=== PATIENT | female | born 1940 | race Caucasian/White ===

== ENCOUNTER → 2017-04-09 | Day surgery (SDC) | payer MEDICARE ==
[2017-04-08 17:54] VITALS: BMI 34.9
[~2017-04-09] MED LIST: Diprivan 20 ML ONE; Lidocaine 1% PF 5 ML VIAL ONE; Lidocaine 2% PF 10 ML AMP (For Epidural Use) ONE; Propofol 200 MG/20 ML VIAL ONE
--- NOTE | 2017-04-09 11:00 | ECHO ---
PROCEDURE NOTE: Date: 04/09/17 PROCEDURE: Transesophageal echocardiogram. INDICATION FOR PROCEDURE: This is a 76-year-old female who is status post Watchman device for chronic atrial fibrillation and increased risk of bleeding with anticoagulation. Transesophageal echocardiogram was performed today to rule out evidence of any flow around or in to the left atrial appendage and to ensure adequate se ating of the Watchman device. DETAILS OF PROCEDURE: The patient was taken to recovery area where she underwent short acting propofol anesthesia. The pro be was easily passed down the distal esophagus and images were obtained. IMPRESSION: 1. There was no evidence of left atrial appendage flow. There was evidence of the Watchman device i n the left atrial appendage. There was no flow around the device or into the left atrial appendage. The left atrium was dilated at 5.4 cm. 2. Severe mitral valve regurgitation. 3. Severe tricuspid valve regurgitation. 4. Normal left ventricular systolic function. Ejection fraction is estimated at 60-65%. The patient tolerated the procedure well without difficulties or complications.
--- NOTE | 2017-04-09 12:17 | SS ---
DATE OF PROCEDURE/DATE OF DISCHARGE: 04/09/2017 ADMITTING DIAGNOSES: This is actually not a true discharge. The patient was not admitted, she was in the outpatient setting, she underwent a transesophageal echocardiogram as the diagnosis was to ev aluate for possible flow around a Watchman device in the left atrial appendage. She has chronic atr ial fibrillation with increased risk of bleeding. She has had recent problems in the past and is hi gh risk for having oral anticoagulation. Other diagnoses include history of hematuria, diverticulit is, hypertension, hyperlipidemia, mitral valve regurgitation, sleep apnea, tricuspid valve regurgita tion, depression with anxiety. DISCHARGE DIAGNOSES: Same. PROCEDURES IN HOSPITAL: Included a transesophageal echocardiogram. HOSPITAL COURSE: This very pleasant 76-year-old female who has had a long history of atrial fibrill ation. She has undergone atrial fibrillation ablation. She continues to have problems with intermi ttent atrial fibrillation. She does appear to be in sinus rhythm, sometimes, but she has had proble ms using oral anticoagulation. She has a CHADS-VASc score of 3. Due to the high risk of bleeding i n this lady she said she had some GI bleeding in the past and Watchman device was deployed and she i s now undergoing today, about 6 weeks later, a transesophageal echocardiogram to rule out evidence o f any flow into the left atrial appendage to possibly increase the possibility of her getting off of her medications. She had been taking Xarelto and diltiazem. This was performed today without diff iculty or complications and she was found to have no flow in the left atrial appendage. The Watchma n device appears to be seated well. DISCHARGE MEDICATIONS: Include Effexor 75 mg daily, Protonix 40 mg a day, potassium supplements tayler ly, Lasix 20 mg a day, Remeron 30 mg at bedtime, metoprolol 25 mg daily, fenofibrate 160 mg daily, C ardizem 60 mg t.i.d. She is on Xarelto 20 mg p.o. daily. Most likely she will stop the Xarelto afte r being visited by the director mobile. Once this was performed, then she will most likely stop the Xarelto and hopefully be able to start a baby aspirin. There were no complications or difficul ties encountered today and she tolerated all the procedures well and she will be discharged home if she remained stable within the next couple of hours and she is awake and alert.
--- NOTE | 2017-04-09 15:01 | EKG ---
Test Reason : PREOP REGGIE Blood Pressure : / mmHG Vent. Rate : 076 BPM Atrial Rate : 220 BPM P-R Int : 000 ms QRS Dur : 086 ms QT Int : 376 ms P-R-T Axes : 000 026 016 degrees QTc Int : 423 ms Atrial fibrillation Possible Inferior infarct , age undetermined Abnormal ECG Confirmed by CORA ALAS ([id number]) on 04/09/2017 3:00:41 PM Referred By: VICK Confirmed By:CORA ALAS
== END ==
LOC: CCL 06:48
PROVIDERS: ATTEND Internal Medicine Cardiovascular Disease
DX: I48.2 Chronic atrial fibrillation (principal); I10 Essential (primary) hypertension; E78.5 Hyperlipidemia, unspecified; G47.30 Sleep apnea, unspecified; I34.0 Nonrheumatic mitral (valve) insufficiency; F32.9 Major depressive disorder, single episode, unspecified; F41.9 Anxiety disorder, unspecified; Z91.048 Other nonmedicinal substance allergy status
CPT/HCPCS: 93005; 93010; 93312; J2001; J2704

== ENCOUNTER 2017-09-19 06:04 | Day surgery (SDC) | payer MEDICARE ==
[2017-09-18 08:40] VITALS: BMI 27.4
[2017-09-19] MEDS ORDERED: PROPOFOL 20 ML ONE (07:07)
[2017-09-19] MEDS ORDERED: Ketamine 50 MG/ML VIAL ONE (07:07)
--- NOTE | 2017-09-19 10:52 | ECHO ---
TRANSESOPHAGEAL ECHOCARDIOGRAM: Date: 09/19/17 This is a 77-year-old female with recurrent chronic atrial fibrillation. She has undergone ablation i n the past. She also has had a Watchman placed. She has severe mitral valve regurgitation. She has b ecome more symptomatic with mitral valve regurgitation. She is being evaluated for a minimally invasi ve mitral valve repair. We were asked by the surgeons to perform a transesophageal echocardiogram for evaluation of the valvular status, the left atrial size, and for any intracardiac thrombi or masses, and also to evaluate the Watchman device. She was taken to the recovery area where she underwent jessie rt-acting propofol. The transesophageal probe was easily passed down the distal esophagus. IMPRESSION: 1. Normal left ventricular systolic function. Ejection fraction is estimated at 55-60%. 2. Left atrial dilatation at 5.4 cm. 3. Severe mitral valve regurgitation. 4. Mild tricuspid valve regurgitation. 5. Trace aortic valve regurgitation. 6. Very small patent foramen ovale with left to right shunt. 7. Watchman device in the left atrial appendage without any evidence of flow around the device. 8. No evidence of intracardiac thrombi or masses. 9. Pliable mitral valve leaflets. There were no difficulties or complications.
--- NOTE | 2017-09-19 13:27 | DIS ---
DATE OF OUTPATIENT PROCEDURE: 09/19/2017 She was seen as an outpatient to undergo an elective transesophageal echocardiogram for evaluation of the mitral valve regurgitation, chamber dimensions, valvular structures, status and also to evaluate the Watchman device which had been placed earlier for her chronic atrial fibrillation. ADMITTING DIAGNOSES: Her other admitting diagnoses include severe mitral valve regurgitation, hypert ension, dyslipidemia. DISCHARGE DIAGNOSES: Severe mitral valve regurgitation, hypertension, dyslipidemia. PROCEDURES IN HOSPITAL: Transesophageal echocardiogram. FOLLOWUP: Her followup will be with me within less than a month in the office to discuss further mary atment for the mitral valve repair to see if any other studies may be indicated prior to proceeding w ith the minimally invasive repair of the mitral valve. She will also be seen in [place] by the CT angy may for the minimally invasive procedure for discussion as to whether or not she is a candidate fo r this. DISCHARGE MEDICATIONS: At this time, will be the same as her admission medications. These include m ultivitamin, Citracal, Fenofibrate 160 mg a day, diltiazem ER 240 mg daily, mirtazapine 30 mg daily, Effexor 75 mg daily, potassium 20 mEq daily, meclizine 25 mg t.i.d. as needed, pantoprazole 40 mg tayler ly, furosemide 40 mg daily, Plavix 75 mg a day, digoxin 0.125 mg every day. PROCEDURES IN HOSPITAL: Transesophageal echocardiogram. HOSPITAL COURSE: This very pleasant 77-year-old female I have followed for many years who has develo ped severe mitral valve regurgitation which has become more symptomatic. She has dyspnea with minima l exertion. She was advised to undergo evaluation for possible mitral valve repair using a minimally invasive procedure. Request was made to perform a transesophageal echocardiogram prior to the proce dure. She was taken to the recovery area where she underwent short acting propofol, the transesophag eal probe was easily passed down the distal esophagus and this showed no evidence of intracardiac thr ombi or masses. She has a Watchman device which is well-seated in the left atrial appendage. Left v entricular systolic function was well preserved. Ejection fraction is 55-60%. She does have severe mitral valve regurgitation and mild tricuspid valve regurgitation, trivial aortic valve regurgitation . She also had a very small patent foramen ovale which most likely is residual from performing the W atchman device, but this appears to be healing up nicely. Ejection fraction was 55-60%. There were no difficulties or complications during her procedure. If she remains stable, she will be discharged home in the next 1-2 hours and further discussion will be directed towards the CV surgeons in [facility] as to any further diagnostic studies and they wish to have undertaken here prior to her evaluation in [place] for a possible mitral valve repair.
[2017-09-19] MEDS ORDERED: PROPOFOL 200 MG/20 ML VIAL ONE (14:06)
[2017-09-19] MEDS ORDERED: PHENYLEPHRINE-NS 100 MCG/ML 10 ML SYRINGE ONE (14:06)
== END 2017-09-19 09:30 | disposition home or self-care (01) ==
LOC: CCL 06:04
PROVIDERS: ATTEND Internal Medicine Cardiovascular Disease
PROC: B246ZZ4 Ultrasonography of Right and Left Heart, Transesophageal (ICD-10-PCS; principal; 2017-09-19)
DX: I34.0 Nonrheumatic mitral (valve) insufficiency (principal); I10 Essential (primary) hypertension; E78.5 Hyperlipidemia, unspecified; I48.2 Chronic atrial fibrillation; I35.1 Nonrheumatic aortic (valve) insufficiency; I36.1 Nonrheumatic tricuspid (valve) insufficiency; Q21.1 Atrial septal defect; G47.30 Sleep apnea, unspecified; F41.8 Other specified anxiety disorders; K21.9 Gastro-esophageal reflux disease without esophagitis; M06.9 Rheumatoid arthritis, unspecified; Z91.048 Other nonmedicinal substance allergy status; Z79.82 Long term (current) use of aspirin; Z79.899 Other long term (current) drug therapy; Z95.818 Presence of other cardiac implants and grafts; Z99.89 Dependence on other enabling machines and devices
CPT/HCPCS: 93312; J2704

== ENCOUNTER 2018-07-08 11:27 | Day surgery (SDC) | payer MEDICARE ==
[2018-07-07 12:09] VITALS: BMI 32.4
[2018-07-08] MEDS ORDERED: PROPOFOL 40 ML ONE (14:21)
[2018-07-08] MEDS ORDERED: PROPOFOL 200 MG/20 ML VIAL ONE (14:39)
--- NOTE | 2018-07-09 07:08 | DIS ---
DATE OF ADMISSION: 07/08/2018 DATE OF DISCHARGE: 07/08/2018 Date of outpatient procedure was 07/08/2018. She was admitted to undergo transesophageal cardiogram with evidence of thrombus on a Watchman device. She also with consideration was given to undergoing a repeat electrocardioversion, since she has converted back to sinus rhythm. OTHER DIAGNOSES: Include 1. Hypertension. 2. Hyperlipidemia. 3. Obstructive sleep apnea, status post maze cryo procedure in December of 2017 and status post mitral valve repair also in 2018. DISCHARGE DIAGNOSES: Include 1. Hypertension. 2. Hyperlipidemia. 3. Obstructive sleep apnea, status post maze cryo procedure in December of 2017 and status post mitral valve repair also in 2018. PROCEDURE IN HOSPITAL: Included transesophageal echocardiogram and electrocardioversion of atrial fibrillation. DISCHARGE MEDICATIONS: Include 1. Metoprolol 25 mg a day. 2. Aspirin 81 mg a day. 3. Venlafaxine 75 mg a day. 4. Pantoprazole 40 mg a day. 5. Eliquis 5 mg b.i.d. 6. Oxybutynin 5 mg at bedtime. 7. MiraLAX as needed. 8. Lasix 40 mg a day. 9. Potassium 10 mEq b.i.d. 10. Losartan 25 mg a day. FOLLOWUP: Her followup will be with me in the next 1 to 2 months in the office. She will continue to routinely follow her chief concierge as per their directions. Procedure in the hospital included a transesophageal echocardiogram and electrical cardioversion of atrial fibrillation. HOSPITAL COURSE: She tolerated the procedures well. She was not noted on the REGGIE to have any evidence of left atrial, left atrial appendage thrombus. There was a Watchman device in the left atrial appendage. There was a trivial leak around the Watchman device, but no evidence of thrombus was noted. She also had mild mitral valve regurgitation and evidence of a previous mitral valve repair. She had moderate to severe tricuspid valve regurgitation. Her left ventricular systolic function was well preserved. With one attempt to 200 joule, she was successfully converted back to a sinus rhythm and sinus bradycardia. There were no other complications or difficulties encountered. She remained stable. She will be discharged home and I will see her back in the office as noted. Job ID: [id number]
--- NOTE | 2018-07-10 15:53 | ECHO ---
CARDIOLOGY PROCEDURE NOTE: Date: 07/08/18 PROCEDURE: Transesophageal echocardiogram. INDICATION FOR PROCEDURE: 78-year-old female with atrial fibrillation, which has been recurrent, with a history of ablation of the atrial fibrillation and PVI in 2014 and multiple cardioversions. She has had mitral valve repair with a maze procedure in 2017. She was found to have clots noted on the Watchman device in December 2017. She also had the Watchman device implanted earlier. She has been on Eliquis for anticoagulatio n. She was seen by the hitch technician, who advised her to undergo a repeat REGGIE to rule out evide nce of thrombus and also to undergo possible repeat cardioversion of her atrial fibrillation since sh e has again returned to atrial fibrillation. PROCEDURE DETAILS: The patient was taken to the cardiac catheter after being on the anticoagulation for three months (El iquis). She underwent short-acting Propofol. The probe was passed down to the distal esophagus. There was no evidence of left atrial or left atrial appendage thrombus. There was a trivial leak around th e Watchman device. I did not visualize any clots on the device. The left atrium was mildly dilated. S he did have mild mitral valve regurgitation and evidence of previous mitral valve repair. Also she shin d moderate to severe tricuspid valve regurgitation. The left ventricular systolic function was about 50-55% ejection fraction. There was no evidence of thrombus. We then proceeded with the electrical ca rdioversion of the atrial fibrillation with one attempt at 200 joules and she was successfully conver zana back to a sinus rhythm with a heart rate in the 50s. Originally, she was very bradycardic, but th en within the next 30-60 seconds the heart rate increased up to the 50s and has remained stable in th e 40s and 50s since she has been cardioverted, and she is maintaining sinus bradycardia with occasion al junctional rhythm, but appears mainly to be a sinus rhythm. Otherwise, there were no complications or difficulties encountered throughout the procedure.
--- NOTE | 2018-07-11 20:34 | EKG ---
Test Reason : PREOP CARDIOVERSION Blood Pressure : / mmHG Vent. Rate : 097 BPM Atrial Rate : 131 BPM P-R Int : 000 ms QRS Dur : 084 ms QT Int : 348 ms P-R-T Axes : 000 053 -18 degrees QTc Int : 441 ms Atrial fibrillation Abnormal QRS-T angle, consider primary T wave abnormality Abnormal ECG When compared with ECG of 09-APR-2017 07:29, Borderline criteria for Inferior infarct are no longer Present Confirmed by Alton HICKMAN ([id number]) on 07/11/2018 8:33:25 PM Referred By: VICK Confirmed By:Alton HICKMAN
--- NOTE | 2018-07-11 20:42 | EKG ---
Test Reason : Blood Pressure : / mmHG Vent. Rate : 051 BPM Atrial Rate : 051 BPM P-R Int : 160 ms QRS Dur : 084 ms QT Int : 424 ms P-R-T Axes : 070 042 014 degrees QTc Int : 390 ms Sinus bradycardia Nonspecific ST abnormality Abnormal ECG When compared with ECG of 08-JUL-2018 15:55, (Unconfirmed) Sinus rhythm has replaced Junctional rhythm Confirmed by Alton HICKMAN ([id number]) on 07/11/2018 8:42:07 PM Referred By: VICK Confirmed By:Alton HICKMAN
== END 2018-07-08 16:58 | disposition home or self-care (01) ==
LOC: CCL 11:27
PROVIDERS: ATTEND Internal Medicine Cardiovascular Disease
PROC: B24BZZ4 Ultrasonography of Heart with Aorta, Transesophageal (ICD-10-PCS; principal; 2018-07-08)
PROC: 5A2204Z Restoration of Cardiac Rhythm, Single (ICD-10-PCS; 2018-07-08)
DX: I48.2 Chronic atrial fibrillation (principal); E78.5 Hyperlipidemia, unspecified; G47.33 Obstructive sleep apnea (adult) (pediatric); M06.9 Rheumatoid arthritis, unspecified; K21.9 Gastro-esophageal reflux disease without esophagitis; I10 Essential (primary) hypertension; Z79.01 Long term (current) use of anticoagulants; Z79.82 Long term (current) use of aspirin; Z79.899 Other long term (current) drug therapy; Z91.048 Other nonmedicinal substance allergy status; Z95.818 Presence of other cardiac implants and grafts; Z98.890 Other specified postprocedural states
CPT/HCPCS: 92960; 93005; 93010; 93312; J2704

== ENCOUNTER 2018-10-17 10:35 | Day surgery (SDC) | payer MEDICARE ==
[2018-10-16 14:25] VITALS: BMI 32.5
[2018-10-17 12:52] LABS: #Eosinphils 0.1 thou/uL (0.0-0.7); #Lymphocytes 1.4 thou/uL (1.20-3.40); #Monocytes 0.4 thou/uL (0.11-0.59); #Neutrophils 4.6 thou/uL (1.40-6.50); %Basophils 0.6 % (0.0-1.0); %Eosinophils 1.3 % (0.0-10.0); %Lymphocytes 21.5 % (21.0-51.0); %Monocytes 6.7 % (0.0-10.0); %Neutrophils 69.9 % (42.0-75.0); Hemoglobin 11.5 g/dL (12.0-16.0); Mean Corpuscular Hemoglobin 28.4 pg (27.0-31.0); Mean Corpuscular Volume 91.7 fL (78.0-98.0); Mean Platelet Volume 7.1 fL (7.4-10.4); Platelet Count 444 thou/uL (130-400); RBC Distribution Width 17.8 % (11.5-14.5); Red Blood Cell (RBC) Count 4.03 mill/uL (4.20-5.40); White Blood Cell (WBC) Count 6.5 thou/uL (4.8-10.8)
[2018-10-17 13:13] LABS: Anion Gap 12 mmol/L (10-20); BUN (Urea Nitrogen) 23 mg/dL (9.8-20.1); Calc. Creatinine Clearance 76 mL/min (70-130); Carbon Dioxide 27 mmol/L (23-31); Chloride 107 mmol/L (98-107); Estimated GFR-MDRD 69; Glucose 86 mg/dL (83-110); Potassium 4.2 mmol/L (3.5-5.1); Sodium 142 mmol/L (136-145)
[2018-10-17] MEDS ORDERED: PROPOFOL 200 MG/20 ML VIAL ONE (16:40)
[2018-10-17] MEDS ORDERED: Lidocaine 1% PF 5 ML VIAL ONE (16:40)
--- NOTE | 2018-10-18 17:44 | ECHO ---
ECHOCARDIOGRAM REPORT: DATE OF EXAM: 10/17/18 INDICATION FOR PROCEDURE: 78-year-old female status post mitral and tricuspid valve annuloplasties. Also had associated Watchma n device placement into the left atrial appendage. She continues to have shortness of breath, fatigue and anemia. During the procedure for the minimally invasive procedure for mitral valve and tricuspid valve repair with annuloplasty and also a Maze procedure, she was noted to have thrombus on the exte rior of the Watchman device which was removed. This was on November 2017. She was advised to undergo a re peat echocardiogram for evaluation to determine whether or not the thrombus had resolved in order pedro t we can consider stopping her Eliquis. In the interim she has also had a small possible TIA. Was see n by the neurologist. This was not felt to be significant and there was no indication that the patien t had actually suffered a CVA. She was taken to the recovery area where she underwent short acting propofol anesthesia and the trans esophageal probe was easily passed down the distal esophagus. IMPRESSION: 1. Evidence of tricuspid and mitral valve repair. 2. Moderate to severe mitral valve regurgitation. 3. Moderate tricuspid valve regurgitation. 4. No evidence of aortic valve regurgitation or stenosis. 5. Left atrial dilatation. 6. Watchman device well seated in the left atrial appendage. No evidence of thrombus formation o n the Watchman device. 7. Normal left ventricular systolic function. Ejection fraction estimated at 60-65%.There were n o difficulties or complications encountered. There were no difficulties or complications encountered.
--- NOTE | 2018-10-18 17:44 | DIS ---
DISCHARGE SUMMARY: The patient was seen in the outpatient facility to undergo a transesophageal echocardiogram. Her diag nosis includes status post Watchman device in left atrial appendage, status post mitral and tricuspid valve annuloplasties. History of hypertension, bradycardia, anemia, history of radiofrequency ablati on for atrial fibrillation. DISCHARGE DIAGNOSIS: Same. PROCEDURES IN THE HOSPITAL: Transesophageal echocardiogram. DISCHARGE MEDICATIONS: Meclizine 25 mg t.i.d. as needed, potassium ER 10 mEq two tablets a day taken with food and also when she takes her Lasix. Effexor 75 mg one tablet q. day, Fenofibrate, aspirin 81 mg a day, Pantoprazole 40 mg q. day, mirtazapine 30 mg q. p.m., Oxybutynin ER 5 mg one q. 24 hours. She had been previously on Eliquis. We will hold this medication for now. Ondanfetrone 4 mg two tablets q. 12 hours as neede d. Tylenol with codeine as needed, multivitamins, Citracal, colchicine 0.6 mg tablets two times a day , Furosemide 20 mg once a day. Losartan 25 mg a day. She had previously been on Metroprolol 25 mg a d ay and we will hold this due to bradycardia. Follow-up will be with me in approximately two weeks in the office in [place]. She will continue her routine follow-up with Dr. Landers. HOSPITAL COURSE: This very pleasant 78-year-old female who has undergone a tricuspid and mitral valve annuloplasty in November of 2017. She also underwent a Maze procedure. Previously, she had undergone ablation for atrial fibrillation. She had had a Watchman device placed also due to the atrial fibrillation. During the ti me of her minimally invasive procedure for the tricuspid and mitral valve repairs, she was noted to h ave thrombus on the Watchman device. This was removed at the time of the procedures and she was advis ed at this time to repeat the evaluation to determine whether or not there was any possible thrombus on the Watchman device since she has remained on Eliquis. We have considered stopping the Eliquis to see whether or not this would improve some of her anemia. In the interim, she has had a possible TIA but no specific stroke was noted and was not felt to be due to embolic phenomenon. At this time, she underwent the procedure, the transesophageal echocardiogram without any complications or difficulties . We did not find any evidence of thrombus on the Watchman device. She continues to have moderate to severe mitral valve regurgitation and moderate tricuspid valve regurgitation. The left ventricular sy stolic function remains stable. Ejection fraction is estimated at 60-65%. At this time, we will stop the beta blockers due to the bradycardia. Heart rates today prior to procedure was in the 40s to 50s. We will stop the beta tisha to see whether or not the heart rate will improve and this may improve also some of her fatigue. Also, we will continue to follow the hemoglobin and hematocrit. We will st op the Eliquis at this time. She will continue the aspirin. I believe she is scheduled to have a colo noscopy in the near future to determine if there is any indication that she may be having any GI bloo d loss. Otherwise she tolerated the procedure well without any difficulties or complications. If she remains stable, she will be discharged to home in the next 1 to 2 hours. I will [facility] in the next couple of weeks in [place].
== END 2018-10-17 16:20 | disposition home or self-care (01) ==
LOC: CCL 10:35
PROVIDERS: ATTEND Internal Medicine Cardiovascular Disease
PROC: B24BZZ4 Ultrasonography of Heart with Aorta, Transesophageal (ICD-10-PCS; principal; 2018-10-17)
DX: I08.1 Rheumatic disorders of both mitral and tricuspid valves (principal); M06.9 Rheumatoid arthritis, unspecified; G47.30 Sleep apnea, unspecified; K21.9 Gastro-esophageal reflux disease without esophagitis; I48.91 Unspecified atrial fibrillation; Z79.01 Long term (current) use of anticoagulants; Z79.82 Long term (current) use of aspirin; Z79.899 Other long term (current) drug therapy; Z91.048 Other nonmedicinal substance allergy status; Z95.818 Presence of other cardiac implants and grafts; Z99.89 Dependence on other enabling machines and devices; Z98.890 Other specified postprocedural states
CPT/HCPCS: 36415; 80048; 85025; 93312; J2001; J2704

== ENCOUNTER 2019-01-23 08:46 | Outpatient (CLI) | payer MEDICARE ==
[2019-01-23 09:27] LABS: Estimated GFR-MDRD - POC Greater than 90
--- NOTE | 2019-01-23 11:32 | CT ---
CTA Angio Chest W WO Con History: Atrial fibrillation Comparison: CT angiogram chest with and without contrast May 2016 Findings: Left anterior descending coronary artery stents. Moderate plaque of the aorta without aneur ysmal dilatation. New from the prior examination is a tricuspid valve annuloplasty ring. Similar appearance mitral valv e annuloplasty ring. The right coronary artery originates in the right coronary cusp and the left coronary artery originates from the left coronary cusp. Left atrial appendage occlusion device completely occludes the left atrial appendage, new from the co mparison examination. No evidence for leak. No significant aortic valve calcifications. The pulmonary trunk measures 34 mm, dilated. The right an d left pulmonary arteries are dilated. No intraluminal filling defect of the pulmonary arteries. Normal single bilateral superior and inferior pulmonary veins. Scattered 2 to 3 mm pulmonary nodules. No airspace consolidation. Mosaic attenuation of the lungs can be seen with chronic pulmonary hypertension. Impression: Vessel mapping as above. The left atrial appendage occlusion device completely occlusive and is without evidence for leak.
[2019-01-23] MEDS ORDERED: Iopamidol 370 76% 100 ML VIAL ONE (13:33)
== END 2019-01-23 08:47 | disposition home or self-care (01) ==
LOC: CT 08:46
DX: I48.91 Unspecified atrial fibrillation (principal); R06.02 Shortness of breath; Z98.890 Other specified postprocedural states
CPT/HCPCS: 71275; 82565; Q9967

== ENCOUNTER 2019-07-14 07:16 | Observation (INO) | payer MEDICARE ==
[2019-07-13 12:58] VITALS: BMI 32.4
[2019-07-14 08:01] LABS: #Eosinphils 0.1 thou/uL (0.0-0.7); #Lymphocytes 1.1 thou/uL (1.20-3.40); #Monocytes 0.5 thou/uL (0.11-0.59); #Neutrophils 3.9 thou/uL (1.40-6.50); %Basophils 0.2 % (0.0-1.0); %Eosinophils 1.8 % (0.0-10.0); %Lymphocytes 19.7 % (21.0-51.0); %Monocytes 9.4 % (0.0-10.0); %Neutrophils 68.9 % (42.0-75.0); Hemoglobin 13.1 g/dL (12.0-16.0); Mean Corpuscular HGB CONC 33.6 g/dL (32.0-36.0); Mean Corpuscular Hemoglobin 33.7 pg (27.0-31.0); Mean Platelet Volume 6.9 fL (7.4-10.4); Platelet Count 337 thou/uL (130-400); RBC Distribution Width 11.3 % (11.5-14.5); Red Blood Cell (RBC) Count 3.88 mill/uL (4.20-5.40); White Blood Cell (WBC) Count 5.7 thou/uL (4.8-10.8)
[2019-07-14 08:14] LABS: Anion Gap 12 mmol/L (10-20); BUN (Urea Nitrogen) 17 mg/dL (9.8-20.1); Calc. Creatinine Clearance 79 mL/min (70-130); Calcium 9.7 mg/dL (7.8-10.44); Carbon Dioxide 28 mmol/L (23-31); Chloride 104 mmol/L (98-107); Estimated GFR-MDRD 73; Glucose 94 mg/dL (83-110); Potassium 4.1 mmol/L (3.5-5.1); Sodium 140 mmol/L (136-145)
[2019-07-14] MEDS ORDERED: PROPOFOL 20 ML ONE (09:26)
[2019-07-14] MEDS ORDERED: Glycopyrrolate 0.2 MG/ML 5 ML SYRINGE ONE ×2 (10:56→11:29)
[2019-07-14] MEDS ORDERED: PROPOFOL 200 MG/20 ML VIAL ONE (11:29)
[2019-07-14] MEDS ORDERED: CEFAZOLIN 1 GM VIAL ONE (15:15)
[2019-07-14] MEDS ORDERED: Midazolam HCl 2 mg/2 ml Vial ONE (15:49)
[2019-07-14] MEDS ORDERED: Gentamicin 80 MG/2 ML VIAL ONE (15:49)
--- NOTE | 2019-07-14 16:36 | OP ---
DATE OF PROCEDURE: 07/14/19 SURGEON: Ivory Bautista M.D. PROCEDURE: Cardioversion INDICATION FOR PROCEDURE: This is a 79-year-old female who has a history of atrial fibrillation. Has undergone ablation in the past. Also has history of a Watchman device placed. She was seen in the clinic approximately two week s ago and was found to be back in atrial fibrillation. Discussed with transportation officer and it was decided that the patient should attempt at another cardioversion of the atrial fibrillation back to s inus rhythm. She was brought to the Recovery area where she underwent short acting propofol and using one attempt at 200 joules, she converted to what appeared to be a severe bradycardia and junctional rhythm. She had significant pauses and developed again junctional rhythm or severe bradycardia. She w as then given 0.2 mg of IV glycopyrrolate and then increased the sinus rhythm up to 60s and 70s and h as remained stable. IMPRESSION: Successful electrical cardioversion of atrial fibrillation back to sinus rhythm without difficulties or any other significant complications.
--- NOTE | 2019-07-14 17:04 | CCL ---
DATE OF PROCEDURE: 07/14/19 INDICATIONS FOR PROCEDURE: 79-year-old female with history of intermittent atrial fibrillation who underwent an electrical cardi oversion for atrial fibrillation this morning. Continued to have episodes of bradycardia with heart r ates in the 30s after the cardioversion which had persisted for more than two hours after the cardiov ersion. 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 She was taken to the [facility] where she underwent the procedure today without difficulties or complic ations. She was implanted with a dual chamber pacemaker from [employer], an [employer] MRI compatible farrah ce. Upper rate was set at 130 and the lower rate was set at 60. There were two screw-in fixed leads p lace. One in the atrium and one in the ventricle. No difficulties or complications were encountered.
[2019-07-14] MEDS ORDERED: Acetaminophen/Codeine 30-300mg Tablet PO PRN ×2 (17:15)
[2019-07-14] MEDS ORDERED: Acetaminophen/Codeine 30-300mg Tablet ONE (19:06)
[2019-07-14] MEDS: Trospium 20 MG TAB PO SCH (20:22)
[2019-07-14] MEDS: hydrALAZINE 10 MG TAB PO SCH (20:22)
[2019-07-14] MEDS ORDERED: Fenofibrate Nanocrystallized 145 MG TAB PO SCH (21:00)
[2019-07-15 08:14] VITALS: BP 134/62; TEMP 98.3
[2019-07-15] MEDS ORDERED: Potassium Chloride 10 MEQ TAB PO SCH (09:00)
[2019-07-15] MEDS ORDERED: Digoxin 0.25 MG TAB PO SCH (09:00)
[2019-07-15] MEDS ORDERED: Venlafaxine HCl XR 75 MG CAP PO SCH (09:00)
[2019-07-15] MEDS ORDERED: Multivitamin W/ Minerals 1 TAB PO SCH (09:00)
[2019-07-15] MEDS ORDERED: Furosemide 40 MG TAB PO SCH (09:00)
[2019-07-15] MEDS ORDERED: Amlodipine 5 MG TAB PO SCH (09:00)
[2019-07-15] MEDS ORDERED: Aspirin 81 mg Enteric Coated Tablet PO SCH (09:00)
[2019-07-15] MEDS ORDERED: Losartan 25 MG TAB PO SCH (09:00)
[2019-07-15] MEDS: hydrALAZINE 10 MG TAB PO SCH (09:16)
[2019-07-15] MEDS: Trospium 20 MG TAB PO SCH (09:17)
--- NOTE | 2019-07-15 15:16 | DIS ---
DATE OF ADMISSION: 07/14/2019 DATE OF DISCHARGE: 07/15/2019 DATE OF PROCEDURE: 07/14/2019. She was seen in the outpatient facility for a planned electrocardioversion of atrial fibrillation. Her diagnosis includes atrial fibrillation, status post ablation of atrial fibrillation in the past, status post maze procedure, status post Watchman device. She also has a history of hyperlipidemia, sleep apnea. She has also had a history of radiofrequency ablation of the greater saphenous vein in 2009. She had a normal ejection fraction and normal cardiac catheterization in 2018. Echocardiogram in September 2018 showed ejection fraction of 60% to 65% with a Watchman, which was well seated in the left atrial appendage. She has also had tricuspid and mitral valve repair due to severe mitral and tricuspid valve regurgitation. DISCHARGE DIAGNOSIS: Atrial fibrillation, sick sinus syndrome She underwent successful electrocardioversion of atrial fibrillation, back to sinus rhythm. DISCHARGE MEDICATIONS: Will include; 1. Effexor 75 mg once a day. 2. Fenofibrate 145 mg once a day. 3. Pantoprazole sodium 40 mg once a day. 4. Oxybutynin chloride ER 10 mg once a day. 5. Centrum Silver vitamin. 6. Potassium 10 mEq two tablets as indicated. 7. Aspirin 81 mg a day. 8. Furosemide 40 mg once a day. 9. Norvasc 5 mg a day. 10. Hydralazine 10 mg four times a day. 11. Losartan 50 mg once a day. She will follow up with the pneumatic tester mechanic in the next 2 to 3 weeks and also will follow up with me in about 1 to 2 months. HOSPITAL COURSE: As noted above. She was admitted to undergo electrocardioversion of atrial fibrillation. This was performed without difficulties or complications except for the bradycardia and then she had heart rates in the 60s to 70s after the procedure. When she was given the glycopyrrolate and then in about 5 or 10 minutes later once this apparently wore off, she did dip down to the 30s at times but then bounced back up to 60s to 70s. We will continue to monitor her over the next 1 to 2 hours. If she remains stable, will be discharged home later today. If she continues to have significant bradycardia, she may need to undergo admission and then probable pacemaker insertion depending on how she does in the next 1 to 2 hours. 07/15/2019 Addendum: She continued to have heart rates in the 30's at times and was advised to undergo permanent pacemaker insertion. She will be admitted overnight after the procedure.There were no other complications or difficulties encountered. I will see her back in the office in 7-10 days. I will resume a betablocker. She was in sinus rhythm on the day of discharge. Job ID: [id number] MTDD
--- NOTE | 2019-07-16 18:01 | DIS ---
DATE OF ADMISSION: 07/14/2019 DATE OF DISCHARGE: 07/15/2019 PRIMARY CARE PHYSICIAN: Dr. Edouard Lawler. PRIMARY MOSHGIACH: Ivory Bautista MD DISCHARGE DIAGNOSES: 1. Atrial fibrillation, status post transesophageal echocardiogram and cardioversion. 2. Bradycardia with status post pacemaker placement. PROCEDURE: 1. Cardioversion for atrial fibrillation. 2. [employer] pacemaker placement on July 14, 2019. HOSPITAL COURSE: Ms. Jon underwent cardioversion of atrial fibrillation on July 14. During the recovery time, the patient's heart rate went down to 30s. The patient underwent pacemaker placement on the same day in the afternoon. The patient doing well. The patient denies any dizziness, lightheadedness. The patient's pacemaker shows A pacing and V sensing sinus rhythm. The patient denied any cardiac complaints. The patient's pacemaker site is cleared open to air. No drainage. Mild erythema and swelling. The patient denied any warmness to touch, pain, or drainage from the site. DISCHARGE MEDICATION: 1. Effexor 75 mg once a day. 2. Fenofibrate 145 mg once a day. 3. Protonix 40 mg once a day. 4. Oxybutynin ER 10 mg once a day. 5. Centrum Silver vitamin. 6. Potassium 10 mEq two tablets as indicate. 7. Aspirin 81 mg once a day. 8. Furosemide 40 mg once a day. 9. Norvasc 5 mg once a day. 10. Hydralazine 10 mg 4 times a day. 11. Losartan 50 mg once a day. 12. Digoxin 250 mcg once a day. DISCHARGE DISPOSITION: Home. ACTIVITY: As tolerated. The patient was instructed not to raise arm especially left arm more than the shoulder level. The patient was instructed to notify to Dr. Bautista' office for any abnormal vital sign and any discharge, swelling or worsening of erythema of the pacemaker site. FOLLOWUP APPOINTMENT: The patient is going to follow up with livestock yard supervisor within the 2-3 weeks. The patient is going to follow up with Dr. Bautista at [place] in 2-3 weeks for the site check and hospital followup, and the patient will continue her routine followup with Dr. Landers. Job ID: [id number]
--- NOTE | 2019-07-20 18:36 | EKG ---
Test Reason : PREOP CARDIOVERSION Blood Pressure : / mmHG Vent. Rate : 080 BPM Atrial Rate : 086 BPM P-R Int : 000 ms QRS Dur : 090 ms QT Int : 354 ms P-R-T Axes : 000 086 -04 degrees QTc Int : 408 ms Atrial fibrillation with a competing junctional pacemaker Abnormal QRS-T angle, consider primary T wave abnormality Abnormal ECG When compared with ECG of 08-JUL-2018 15:59, Atrial fibrillation has replaced Sinus rhythm Vent. rate has increased BY 29 BPM Confirmed by LUZ MARINA LIVINGSTON, DR. Bryson (4) on 07/20/2019 6:36:21 PM Referred By: VICK Confirmed By:DR. Braydon RAZA MD
--- NOTE | 2019-07-20 18:38 | EKG ---
Test Reason : POST CARDIOVERION Blood Pressure : / mmHG Vent. Rate : 069 BPM Atrial Rate : 069 BPM P-R Int : 172 ms QRS Dur : 088 ms QT Int : 394 ms P-R-T Axes : 081 081 028 degrees QTc Int : 422 ms Normal sinus rhythm Normal ECG When compared with ECG of 14-JUL-2019 11:05, (Unconfirmed) Vent. rate has increased BY 33 BPM Nonspecific T wave abnormality no longer evident in Lateral leads QT has lengthened Confirmed by LUZ MARINA LIVINGSTON, SNathalie (4) on 07/20/2019 6:38:09 PM Referred By: VICK Confirmed By:DR. Braydon RAZA MD
--- NOTE | 2019-07-20 18:38 | EKG ---
Test Reason : POST CARDIOVERION Blood Pressure : / mmHG Vent. Rate : 036 BPM Atrial Rate : 036 BPM P-R Int : 160 ms QRS Dur : 088 ms QT Int : 410 ms P-R-T Axes : 075 079 076 degrees QTc Int : 317 ms Marked sinus bradycardia Nonspecific T wave abnormality Abnormal ECG When compared with ECG of 14-JUL-2019 08:07, (Unconfirmed) Sinus rhythm has replaced Atrial fibrillation Vent. rate has decreased BY 44 BPM Nonspecific T wave abnormality now evident in Lateral leads QT has shortened Confirmed by LUZ MARINA LIVINGSTON, . SNathalie (4) on 07/20/2019 6:38:04 PM Referred By: VICK Confirmed By:DR. Braydon RAZA MD
== END 2019-07-15 10:06 | disposition home or self-care (01) ==
LOC: CCL 07:16 → 2SW 19:37
PROVIDERS: ADMIT Internal Medicine Cardiovascular Disease; ATTEND Internal Medicine Cardiovascular Disease
PROC: 5A2204Z Restoration of Cardiac Rhythm, Single (ICD-10-PCS; principal; 2019-07-14)
PROC: 0JH606Z Insertion of Pacemaker, Dual Chamber into Chest Subcutaneous Tissue and Fascia, Open Approach (ICD-10-PCS; 2019-07-14)
PROC: 02H63JZ Insertion of Pacemaker Lead into Right Atrium, Percutaneous Approach (ICD-10-PCS; 2019-07-14)
PROC: 02HK3JZ Insertion of Pacemaker Lead into Right Ventricle, Percutaneous Approach (ICD-10-PCS; 2019-07-14)
DX: I49.5 Sick sinus syndrome (principal); I48.19 Other persistent atrial fibrillation; G47.30 Sleep apnea, unspecified; K21.9 Gastro-esophageal reflux disease without esophagitis; M06.9 Rheumatoid arthritis, unspecified; F41.8 Other specified anxiety disorders; I10 Essential (primary) hypertension; I34.0 Nonrheumatic mitral (valve) insufficiency; E78.2 Mixed hyperlipidemia; M19.90 Unspecified osteoarthritis, unspecified site; I87.2 Venous insufficiency (chronic) (peripheral); Z86.010 Personal history of colon polyps; Z79.82 Long term (current) use of aspirin; Z79.899 Other long term (current) drug therapy; Z91.048 Other nonmedicinal substance allergy status; Z99.89 Dependence on other enabling machines and devices
CPT/HCPCS: 33208; 80048; 85025; 92960; 93005 ×2; C1785; C1898 ×2; G0378 ×2; 36415; 93010; 99152; 99153; J0690; J1580; J2250; J2704

== ENCOUNTER 2020-01-13 13:58 | Outpatient (CLI) | payer MEDICARE, OTHER ==
[2020-01-13 21:22] LABS: #Eosinphils 0.2 10x3/uL (0.0-0.5); #Monocytes 0.6 10x3/uL (0.0-1.1); #Neutrophils 4.1 10x3/uL (1.5-8.4); %Basophils 0.3 % (0.0-2.0); %Eosinophils 2.4 % (0.0-6.0); %Lymphocytes 25.6 % (18.0-47.0); %Monocytes 9.4 % (0.0-10.0); Hemoglobin 12.3 g/dL (12.0-15.6); Mean Corpuscular HGB CONC 32.4 G/DL (32.0-36.0); Mean Corpuscular Hemoglobin 31.9 PG (27.0-33.0); Mean Corpuscular Volume 98.4 fl (80.0-100.0); RBC Distribution Width 12.7 % (11.5-14.5); Red Blood Cell (RBC) Count 3.86 10x6/uL (3.90-5.20); White Blood Cell (WBC) Count 6.7 10x3/uL (4.5-11.0)
[2020-01-13 21:23] LABS: Platelet Count 413 10x3/uL (130-400)
[2020-01-13 21:34] LABS: Anion Gap 19 mmol/L (10-20); BUN (Urea Nitrogen) 34 mg/dL (9.8-20.1); Calc. Creatinine Clearance 0 mL/min (70-130); Calcium 9.5 mg/dL (7.8-10.44); Carbon Dioxide 22 mmol/L (23-31); Chloride 104 mmol/L (98-107); Estimated GFR-MDRD 47; Glucose 82 mg/dL (83-110); Potassium 4.8 mmol/L (3.5-5.1); Sodium 140 mmol/L (136-145)
[2020-01-14 10:36] LABS: #Lymphocytes 1.7 10x3/uL (0.7-4.9)
[2020-01-14 10:38] LABS: Manual Diff?? NO
[2020-01-14 14:53] LABS: SARS-CoV-2 MS2 Positive; SARS-CoV-2 N Gene Negative; SARS-CoV-2 S Gene Negative; SARS-CoV-2 orf1ab Negative
== END 2020-01-13 13:59 | disposition home or self-care (01) ==
LOC: LABBT 13:58
PROVIDERS: ATTEND Internal Medicine Cardiovascular Disease
DX: Z01.818 Encounter for other preprocedural examination (principal); Z11.59 Encounter for screening for other viral diseases; I48.19 Other persistent atrial fibrillation
CPT/HCPCS: 80048; 85025; U0003; 87635; 93005; 93010

== ENCOUNTER 2020-01-18 05:51 | Day surgery (SDC) | payer MEDICARE ==
[2020-01-15 10:37] VITALS: BMI 32.5
[2020-01-18] MEDS ORDERED: PROPOFOL 20 ML ONE (06:53)
--- NOTE | 2020-01-18 12:53 | DIS ---
DATE OF ADMISSION: 01/18/2020 DATE OF DISCHARGE: 01/18/2020 She was seen as an outpatient where she underwent electrocardioversion. DIAGNOSES: Atrial fibrillation, status post Watchman device, status post pacemaker insertion. DISCHARGE DIAGNOSES: Atrial fibrillation, status post Watchman device, status post pacemaker insertion. PROCEDURE: She was converted from atrial fibrillation back to normal sinus rhythm. DISCHARGE MEDICATIONS: 1. Aspirin 81 mg a day. 2. Multaq 400 mg b.i.d. 3. TriCor 145 mg q.p.m. 4. Lasix 40 mg a day. 5. Hydralazine 10 mg q.i.d. 6. Losartan 50 mg daily. 7. Metoprolol 25 mg b.i.d. 8. Multivitamins. 9. Protonix 40 mg a day. 10. KCl 10 mEq a day. 11. VESIcare one tablet 10 mg q.p.m. 12. Venlafaxine hydrochloride ER 75 mg q.a.m. HOSPITAL COURSE: Her followup will be with me in the next couple of weeks in the office. We will call her or we can also perform a transtelephonic check of the pacemaker if she remains in sinus rhythm. There were no complications or difficulties encountered. She was brought into the hospital as an outpatient and underwent short acting propofol and then one attempt at 200 joules, she was successfully converted back from her atrial fibrillation back to sinus rhythm. She has atrial pacing and ventricular pacing at a rate of 60 to 80 beats per minute but remained stable. Should she convert back to atrial fibrillation, we will just continue to monitor the heart rate and control the heart rate and continue aspirin for anticoagulation. She has had a Watchman device and does not need to have oral anticoagulation otherwise. Job ID: [id number]
--- NOTE | 2020-01-18 15:27 | CCLSPC ---
INDICATION FOR PROCEDURE: A 79-year-old female who has undergone pacemaker insertion, has a history of Watchman device, history of atrial fibrillation and was advised to undergo a cardioversion. She had been treated with Multaq. She had been on anticoagulation. She was taken to the recovery area where she underwent short acting propofol, using one attempt at 200 joules, she was successfully converted back to normal sinus rhythm. There were no complications or difficulties encountered. Job ID: [id number]
== END 2020-01-18 08:05 | disposition home or self-care (01) ==
LOC: CCL 05:51
PROVIDERS: ATTEND Internal Medicine Cardiovascular Disease
PROC: 5A2204Z Restoration of Cardiac Rhythm, Single (ICD-10-PCS; principal; 2020-01-18)
DX: I48.19 Other persistent atrial fibrillation (principal); I10 Essential (primary) hypertension; E78.2 Mixed hyperlipidemia; I87.2 Venous insufficiency (chronic) (peripheral); M19.90 Unspecified osteoarthritis, unspecified site; D50.8 Other iron deficiency anemias; G47.33 Obstructive sleep apnea (adult) (pediatric); K21.9 Gastro-esophageal reflux disease without esophagitis; M06.9 Rheumatoid arthritis, unspecified; F41.8 Other specified anxiety disorders; Z79.82 Long term (current) use of aspirin; Z79.899 Other long term (current) drug therapy; Z91.048 Other nonmedicinal substance allergy status; Z95.0 Presence of cardiac pacemaker; Z95.2 Presence of prosthetic heart valve; Z95.818 Presence of other cardiac implants and grafts
CPT/HCPCS: 92960; 93005; 93010; J2704

== ENCOUNTER 2021-12-28 16:53 | Inpatient (IN) | payer MEDICARE ==
[~2021-12-28 16:53] MED LIST changes: -Diprivan 20 ML ONE; +ISOVUE-370 76%-LOCM 1 ML ONE; -Lidocaine 1% PF 5 ML VIAL ONE; -Lidocaine 2% PF 10 ML AMP (For Epidural Use) ONE; -Propofol 200 MG/20 ML VIAL ONE
[2021-12-28 18:33] LABS: #Eosinphils 0.1 thou/uL (0.0-0.7); #Lymphocytes 1.4 thou/uL (1.20-3.40); #Monocytes 0.8 thou/uL (0.11-0.59); #Neutrophils 8.6 thou/uL (1.40-6.50); %Basophils 0.2 % (0.0-1.0); %Lymphocytes 12.7 % (21.0-51.0); %Monocytes 7.1 % (0.0-10.0); %Neutrophils 79.1 % (42.0-75.0); Hemoglobin 11.9 g/dL (12.0-16.0); Mean Corpuscular HGB CONC 30.8 g/dL (32.0-36.0); Mean Platelet Volume 7.2 fL (7.4-10.4); Platelet Count 324 thou/uL (130-400); RBC Distribution Width 13.9 % (11.5-14.5); White Blood Cell (WBC) Count 10.9 thou/uL (4.8-10.8)
[2021-12-28 19:14] LABS: Bacteria/HPF None Seen HPF (None Seen); Bilirubin Negative (Negative); Blood, Urine Negative (Negative); Clarity Clear (Clear); Glucose, Urine (Dipstick) Normal (Negative); Ketone, Urine Negative (Negative); Leukocyte 75 Leu/uL (Negative); Nitrite Negative (Negative); Protein, Urine (Dipstick) Negative (Neg-Trace); RBC/HPF 0-3 HPF (0-3); Specific Gravity, Urine 1.017 (1.002-1.036); Squamous Epithelial None Seen HPF (0-3); Urobilinogen 6 mg/dL (Less than 2); pH, Urine 6.5 (5.0-9.0)
[2021-12-28 19:17] LABS: MDiff Complete? YES; Macrocytosis SLIGHT = 6-15 cells (100X) (0-5/hpf); Platelet Morphology Comment Appears Adequate; Polychromasia SLIGHT = 2-3 cells (100X) (0-2/hpf)
[2021-12-28 20:31] LABS: ALT (SGPT) 48 U/L (8-55); AST (SGOT) 119 U/L (5-34); Albumin 2.9 g/dL (3.4-4.8); Alkaline Phosphatase 205 U/L (40-110); Anion Gap 17 mmol/L (10-20); BUN (Urea Nitrogen) 25 mg/dL (9.8-20.1); Bilirubin, Total 1.8 mg/dL (0.2-1.2); Calc. Creatinine Clearance 0 mL/min (70-130); Calcium 8.9 mg/dL (7.8-10.44); Carbon Dioxide 25 mmol/L (23-31); Chloride 102 mmol/L (98-107); Estimated GFR 56; Globulin 3.7 g/dL (2.4-3.5); Glucose 104 mg/dL (83-110); Lipase 61 U/L (8-78); Potassium 4.8 mmol/L (3.5-5.1); Protein, Total 6.6 g/dL (5.8-8.1); Sodium 139 mmol/L (136-145)
[2021-12-28] MEDS ORDERED: Furosemide 40 MG/4 ML VIAL ONE (21:10)
[2021-12-28 21:47] LABS: SARS-CoV-2 NAA Rapid Test Not Detected (NotDetected)
[2021-12-28] MEDS ORDERED: Ondansetron ODT 4 MG TAB PO PRN (21:51)
[2021-12-28] MEDS ORDERED: Ondansetron PF 4 MG/2 ML Vial IVP PRN (21:51)
[2021-12-28] MEDS ORDERED: Acetaminophen 650 MG Suppository PR PRN (21:51)
[2021-12-29] MEDS ORDERED: Furosemide 40 MG/4 ML VIAL SLOW IVP SCH (01:30)
[2021-12-29] MEDS: cefTRIAXone\\ROCEPHIN 1 GM in Sodium Chloride 0.9% 100 ML IVPB SCH (02:33)
[2021-12-29 04:45] LABS: #Basophils 0.1 thou/uL (0.0-0.2); #Eosinphils 0.2 thou/uL (0.0-0.7); #Lymphocytes 1.3 thou/uL (1.20-3.40); #Monocytes 0.7 thou/uL (0.11-0.59); #Neutrophils 6.7 thou/uL (1.40-6.50); %Basophils 0.7 % (0.0-1.0); %Eosinophils 1.7 % (0.0-10.0); %Lymphocytes 14.1 % (21.0-51.0); %Monocytes 8.3 % (0.0-10.0); %Neutrophils 75.3 % (42.0-75.0); Hemoglobin 10.7 g/dL (12.0-16.0); Mean Corpuscular HGB CONC 31.6 g/dL (32.0-36.0); Mean Corpuscular Hemoglobin 34.9 pg (27.0-31.0); Mean Platelet Volume 6.9 fL (7.4-10.4); Platelet Count 279 thou/uL (130-400); Red Blood Cell (RBC) Count 3.06 mill/uL (4.20-5.40)
[2021-12-29 05:56] LABS: Anion Gap 12 mmol/L (10-20); BUN (Urea Nitrogen) 23 mg/dL (9.8-20.1); Calc. Creatinine Clearance 69 mL/min (70-130); Calcium 8.8 mg/dL (7.8-10.44); Carbon Dioxide 31 mmol/L (23-31); Chloride 102 mmol/L (98-107); Estimated GFR 62; Glucose 84 mg/dL (83-110); Magnesium 1.9 mg/dL (1.6-2.6); Potassium 3.9 mmol/L (3.5-5.1); Sodium 141 mmol/L (136-145)
[2021-12-29] MEDS: Furosemide 40 MG/4 ML VIAL SLOW IVP SCH ×2 (05:59→15:58)
[2021-12-29] MEDS: Enoxaparin Sodium 40 MG/0.4 ML SYRINGE SC SCH (08:22)
[2021-12-29] MEDS ORDERED: Spironolactone 25 MG TAB PO SCH (10:15)
[2021-12-29 11:28] LABS: INR-International Normal Ratio 1.3; Prothrombin Time 16.4 sec (12.0-14.7)
[2021-12-29 15:45] LABS: Fluid, Protein 1.7 g/dL (Not Available)
[2021-12-29 15:49] LABS: RBC Count-Automated (BF) 575 /cu.mm; WBC/Nucleated-Auto (BF) 271 /cu.mm
[2021-12-29 15:51] LABS: Fluid, pH - Pleural Fld Greater than 7.50 (7.60 - 7.66)
[2021-12-29] MEDS: Spironolactone 25 MG TAB PO SCH (15:58)
[2021-12-29 16:30] LABS: Body Fluid Source Peritoneal Fluid
[2021-12-29 16:31] LABS: BF Color Yellow; Clarity Hazy (Clear); Tube # EDTA
[2021-12-29 16:35] LABS: BF Segmented Neutrophils 16 %; Cell Count Non Hematic 39 %; Eosinophils 1 %; Lymphocytes 44 %
[2021-12-29] MEDS ORDERED: Senokot 8.6 MG TAB PO PRN (18:33)
[2021-12-29] MEDS ORDERED: Calcium Carbonate 500 MG ChewTAB PO PRN ×2 (19:24→21:00)
[2021-12-29] MEDS: Albumin 25% 25 GM/100 ML BOT IVPB SCH (21:00)
[2021-12-29] MEDS: Calcium Carbonate 600 MG + Vit D TAB PO SCH (21:01)
[2021-12-29] MEDS: Docusate 100 MG CAP PO SCH (21:01)
[2021-12-29] MEDS: Melatonin 3 MG TAB PO SCH (21:01)
[2021-12-29] MEDS: Potassium Chloride 10 MEQ TAB PO SCH (21:01)
[2021-12-30] MEDS: Albumin 25% 25 GM/100 ML BOT IVPB SCH ×4 (00:18→21:17)
[2021-12-30] MEDS ORDERED: traZODone HCl 50 MG TAB PO PRN (01:51)
[2021-12-30] MEDS: cefTRIAXone\\ROCEPHIN 1 GM in Sodium Chloride 0.9% 100 ML IVPB SCH (02:42)
[2021-12-30 05:57] LABS: ALT (SGPT) 32 U/L (8-55); AST (SGOT) 84 U/L (5-34); Albumin 2.9 g/dL (3.4-4.8); Alkaline Phosphatase 161 U/L (40-110); Anion Gap 13 mmol/L (10-20); BUN (Urea Nitrogen) 24 mg/dL (9.8-20.1); Bilirubin, Total 1.9 mg/dL (0.2-1.2); CRP (Inflammatory) 7.76 mg/dL (= or < 0.5); Calc. Creatinine Clearance 71 mL/min (70-130); Calcium 8.7 mg/dL (7.8-10.44); Carbon Dioxide 28 mmol/L (23-31); Chloride 101 mmol/L (98-107); Estimated GFR 64; Glucose 95 mg/dL (83-110); Iron 62 ug/dL (50-170); Iron Binding Capacity, Total 189 mcg/dL (265-497); Protein, Total 5.9 g/dL (5.8-8.1); Sodium 138 mmol/L (136-145)
[2021-12-30] MEDS: Furosemide 40 MG/4 ML VIAL SLOW IVP SCH ×2 (05:57→15:16)
[2021-12-30 06:14] LABS: Alpha-Fetoprotein,Tumor Marker 3.9 ng/mL (0.89-8.78)
[2021-12-30 06:14] LABS: Ferritin 95.64 ng/mL (10-291)
[2021-12-30 06:28] LABS: HBCM Index 0.19 S/CO (0-0.79); HBSAg Index 0.22 S/CO (0-0.99); Hep A IgM AB Non-Reactive (NonReactive); Hep A IgM S/CO 0.25 S/CO (0-0.79); Hep B Surf Ag Non-Reactive S/CO (NonReactive); Hep C IgG Ab Non-Reactive (NonReactive); Hepatitis B Core IgM Abs Non-Reactive (NonReactive)
[2021-12-30 07:12] LABS: Cancer Antigen - CA 125 1337.2 U/mL (Less than 35)
[2021-12-30 07:16] LABS: #Eosinphils 0.1 thou/uL (0.0-0.7); #Lymphocytes 1.1 thou/uL (1.20-3.40); #Monocytes 0.8 thou/uL (0.11-0.59); #Neutrophils 7.1 thou/uL (1.40-6.50); %Basophils 0.3 % (0.0-1.0); %Lymphocytes 11.6 % (21.0-51.0); %Monocytes 8.4 % (0.0-10.0); %Neutrophils 78.7 % (42.0-75.0); Hemoglobin 10.7 g/dL (12.0-16.0); Mean Corpuscular HGB CONC 32.5 g/dL (32.0-36.0); Mean Corpuscular Hemoglobin 35.6 pg (27.0-31.0); Mean Platelet Volume 6.7 fL (7.4-10.4); Platelet Count 284 thou/uL (130-400); RBC Distribution Width 13.9 % (11.5-14.5); White Blood Cell (WBC) Count 9.1 thou/uL (4.8-10.8)
[2021-12-30] MEDS: Gabapentin 100 MG CAP PO SCH (09:01)
[2021-12-30] MEDS: Polyethylene Glycol 3350 17 GM Packet PO SCH (09:01)
[2021-12-30] MEDS: Docusate 100 MG CAP PO SCH ×2 (09:01→21:16)
[2021-12-30] MEDS: Venlafaxine HCl XR 75 MG CAP PO SCH (09:01)
[2021-12-30] MEDS: Potassium Chloride 10 MEQ TAB PO SCH ×2 (09:02→21:16)
[2021-12-30] MEDS: Aspirin 81 mg Enteric Coated Tablet PO SCH (09:02)
[2021-12-30] MEDS: Cholecalciferol 1,000 UNITS (25 MCG) TAB PO SCH (09:02)
[2021-12-30] MEDS: Enoxaparin Sodium 40 MG/0.4 ML SYRINGE SC SCH (09:02)
[2021-12-30] MEDS: Spironolactone 25 MG TAB PO SCH ×2 (09:02→17:17)
[2021-12-30] MEDS: Calcium Carbonate 600 MG + Vit D TAB PO SCH ×2 (09:02→21:16)
[2021-12-30] MEDS ORDERED: Albumin 25% 25 GM/100 ML BOT IVPB SCH ×2 (12:45→18:45)
[2021-12-30] MEDS: Melatonin 3 MG TAB PO SCH (21:16)
[2021-12-31] MEDS: cefTRIAXone\\ROCEPHIN 1 GM in Sodium Chloride 0.9% 100 ML IVPB SCH (01:41)
[2021-12-31] MEDS: Albumin 25% 25 GM/100 ML BOT IVPB SCH ×3 (03:20→15:48)
[2021-12-31] MEDS: Furosemide 40 MG/4 ML VIAL SLOW IVP SCH ×2 (05:39→13:32)
[2021-12-31 05:44] LABS: ALT (SGPT) 26 U/L (8-55); AST (SGOT) 67 U/L (5-34); Albumin 3.6 g/dL (3.4-4.8); Alkaline Phosphatase 135 U/L (40-110); Anion Gap 15 mmol/L (10-20); BUN (Urea Nitrogen) 21 mg/dL (9.8-20.1); Bilirubin, Total 2.4 mg/dL (0.2-1.2); Calc. Creatinine Clearance 82 mL/min (70-130); Calcium 8.9 mg/dL (7.8-10.44); Carbon Dioxide 27 mmol/L (23-31); Chloride 102 mmol/L (98-107); Estimated GFR 77; Globulin 2.6 g/dL (2.4-3.5); Glucose 88 mg/dL (83-110); Potassium 3.8 mmol/L (3.5-5.1); Protein, Total 6.2 g/dL (5.8-8.1); Sodium 140 mmol/L (136-145)
[2021-12-31] MEDS: Enoxaparin Sodium 40 MG/0.4 ML SYRINGE SC SCH (08:56)
[2021-12-31] MEDS: Potassium Chloride 10 MEQ TAB PO SCH ×2 (08:56→20:23)
[2021-12-31] MEDS: Polyethylene Glycol 3350 17 GM Packet PO SCH (08:56)
[2021-12-31] MEDS: Spironolactone 25 MG TAB PO SCH ×2 (08:56→17:17)
[2021-12-31] MEDS: Docusate 100 MG CAP PO SCH ×2 (08:56→20:23)
[2021-12-31] MEDS: Gabapentin 100 MG CAP PO SCH (08:56)
[2021-12-31] MEDS: Aspirin 81 mg Enteric Coated Tablet PO SCH (08:56)
[2021-12-31] MEDS: Calcium Carbonate 600 MG + Vit D TAB PO SCH ×2 (08:56→20:23)
[2021-12-31] MEDS: Venlafaxine HCl XR 75 MG CAP PO SCH (08:56)
[2021-12-31] MEDS: Cholecalciferol 1,000 UNITS (25 MCG) TAB PO SCH (08:57)
[2021-12-31] MEDS ORDERED: HYDROcodone/Acetaminophen 5/325 mg Tablet PO PRN (13:07)
[2021-12-31] MEDS: Melatonin 3 MG TAB PO SCH (20:22)
[2021-12-31] MEDS: Acetaminophen 325 MG TAB PO PRN (20:34)
[2022-01-01] MEDS: cefTRIAXone\\ROCEPHIN 1 GM in Sodium Chloride 0.9% 100 ML IVPB SCH (01:35)
[2022-01-01 05:39] LABS: ALT (SGPT) 22 U/L (8-55); AST (SGOT) 61 U/L (5-34); Albumin 3.4 g/dL (3.4-4.8); Alkaline Phosphatase 133 U/L (40-110); Anion Gap 13 mmol/L (10-20); BUN (Urea Nitrogen) 26 mg/dL (9.8-20.1); Bilirubin, Total 2.4 mg/dL (0.2-1.2); Calc. Creatinine Clearance 64 mL/min (70-130); Calcium 8.8 mg/dL (7.8-10.44); Carbon Dioxide 30 mmol/L (23-31); Chloride 101 mmol/L (98-107); Estimated GFR 58; Globulin 2.3 g/dL (2.4-3.5); Glucose 93 mg/dL (83-110); Protein, Total 5.7 g/dL (5.8-8.1); Sodium 140 mmol/L (136-145)
[2022-01-01] MEDS: Furosemide 40 MG/4 ML VIAL SLOW IVP SCH ×2 (06:10→15:47)
[2022-01-01] MEDS: Enoxaparin Sodium 40 MG/0.4 ML SYRINGE SC SCH (08:46)
[2022-01-01] MEDS: Polyethylene Glycol 3350 17 GM Packet PO SCH (08:46)
[2022-01-01] MEDS: Venlafaxine HCl XR 75 MG CAP PO SCH (08:48)
[2022-01-01] MEDS: Aspirin 81 mg Enteric Coated Tablet PO SCH (08:48)
[2022-01-01] MEDS: Docusate 100 MG CAP PO SCH ×2 (08:48→21:28)
[2022-01-01] MEDS: Calcium Carbonate 600 MG + Vit D TAB PO SCH ×2 (08:49→21:28)
[2022-01-01] MEDS: Gabapentin 100 MG CAP PO SCH (08:49)
[2022-01-01] MEDS: Spironolactone 25 MG TAB PO SCH ×2 (08:49→15:47)
[2022-01-01] MEDS: Potassium Chloride 10 MEQ TAB PO SCH ×2 (08:50→21:28)
[2022-01-01] MEDS: Cholecalciferol 1,000 UNITS (25 MCG) TAB PO SCH (08:50)
[2022-01-01 10:57] LABS: ANA Symphony (Qualitative) Negative (Negative); ANA Symphony (Quantitative) 0.5 Ratio (< 0.7 Negative); EliA Vaculitis New Method **** NEW METHOD ****; Mitochondrial Ab 1.4 U/mL (<4 Negative); dsDNA IgG Antibody 1.2 IU/mL (<10 Negative)
[2022-01-01] MEDS: Melatonin 3 MG TAB PO SCH (21:27)
[2022-01-02] MEDS: cefTRIAXone\\ROCEPHIN 1 GM in Sodium Chloride 0.9% 100 ML IVPB SCH (01:43)
[2022-01-02 05:10] LABS: #Eosinphils 0.1 thou/uL (0.0-0.7); #Monocytes 0.8 thou/uL (0.11-0.59); #Neutrophils 7.2 thou/uL (1.40-6.50); %Eosinophils 1.4 % (0.0-10.0); %Lymphocytes 10.9 % (21.0-51.0); %Monocytes 8.5 % (0.0-10.0); %Neutrophils 79.2 % (42.0-75.0); Hemoglobin 10.2 g/dL (12.0-16.0); Mean Corpuscular HGB CONC 32.1 g/dL (32.0-36.0); Mean Corpuscular Hemoglobin 35.3 pg (27.0-31.0); Mean Platelet Volume 7.2 fL (7.4-10.4); Platelet Count 262 thou/uL (130-400); RBC Distribution Width 13.8 % (11.5-14.5); White Blood Cell (WBC) Count 9.1 thou/uL (4.8-10.8)
[2022-01-02 05:35] LABS: Anion Gap 12 mmol/L (10-20); BUN (Urea Nitrogen) 29 mg/dL (9.8-20.1); Calc. Creatinine Clearance 65 mL/min (70-130); Carbon Dioxide 31 mmol/L (23-31); Chloride 100 mmol/L (98-107); Potassium 4.4 mmol/L (3.5-5.1); Sodium 139 mmol/L (136-145)
[2022-01-02 05:36] LABS: ALT (SGPT) 27 U/L (8-55); AST (SGOT) 69 U/L (5-34); Albumin 3.3 g/dL (3.4-4.8); Alkaline Phosphatase 147 U/L (40-110); Bilirubin, Total 2.4 mg/dL (0.2-1.2); Calcium 8.8 mg/dL (7.8-10.44); Estimated GFR 58; Globulin 2.4 g/dL (2.4-3.5); Glucose 109 mg/dL (83-110); Protein, Total 5.7 g/dL (5.8-8.1)
[2022-01-02] MEDS: Enoxaparin Sodium 40 MG/0.4 ML SYRINGE SC SCH (09:20)
[2022-01-02] MEDS: Polyethylene Glycol 3350 17 GM Packet PO SCH (09:21)
[2022-01-02] MEDS: Gabapentin 100 MG CAP PO SCH (09:22)
[2022-01-02] MEDS: Docusate 100 MG CAP PO SCH ×2 (09:22→21:51)
[2022-01-02] MEDS: Aspirin 81 mg Enteric Coated Tablet PO SCH (09:23)
[2022-01-02] MEDS: Potassium Chloride 10 MEQ TAB PO SCH (09:23)
[2022-01-02] MEDS: Cholecalciferol 1,000 UNITS (25 MCG) TAB PO SCH (09:23)
[2022-01-02] MEDS: Venlafaxine HCl XR 75 MG CAP PO SCH (09:23)
[2022-01-02] MEDS: Calcium Carbonate 600 MG + Vit D TAB PO SCH ×2 (09:23→21:51)
[2022-01-02] MEDS ORDERED: CEFAZOLIN 2 GM in Sodium Chloride 0.9% 100 ML IVPB SCH (12:00)
[2022-01-02] MEDS: methylPREDNISolone Sod Succ 40 MG VIAL IVP SCH ×3 (14:27→22:00)
[2022-01-02] MEDS: Melatonin 3 MG TAB PO SCH (21:51)
[2022-01-02] MEDS: Furosemide 40 MG/4 ML VIAL SLOW IVP SCH (21:54)
[2022-01-03] MEDS: cefTRIAXone\\ROCEPHIN 1 GM in Sodium Chloride 0.9% 100 ML IVPB SCH (02:04)
[2022-01-03 05:18] LABS: #Lymphocytes 0.5 thou/uL (1.20-3.40); #Monocytes 0.2 thou/uL (0.11-0.59); #Neutrophils 7.3 thou/uL (1.40-6.50); %Basophils 0.3 % (0.0-1.0); %Eosinophils 0.2 % (0.0-10.0); %Lymphocytes 5.6 % (21.0-51.0); %Monocytes 2.1 % (0.0-10.0); %Neutrophils 91.9 % (42.0-75.0); Hemoglobin 10.2 g/dL (12.0-16.0); Mean Corpuscular HGB CONC 31.6 g/dL (32.0-36.0); Mean Corpuscular Hemoglobin 34.8 pg (27.0-31.0); Mean Platelet Volume 7.3 fL (7.4-10.4); Platelet Count 273 thou/uL (130-400); RBC Distribution Width 14.1 % (11.5-14.5); Red Blood Cell (RBC) Count 2.93 mill/uL (4.20-5.40)
[2022-01-03] MEDS: Furosemide 40 MG/4 ML VIAL SLOW IVP SCH ×3 (05:30→21:10)
[2022-01-03 05:36] LABS: ALT (SGPT) 30 U/L (8-55); AST (SGOT) 76 U/L (5-34); Albumin 3.3 g/dL (3.4-4.8); Alkaline Phosphatase 163 U/L (40-110); Anion Gap 15 mmol/L (10-20); BUN (Urea Nitrogen) 27 mg/dL (9.8-20.1); Bilirubin, Total 2.2 mg/dL (0.2-1.2); Calc. Creatinine Clearance 76 mL/min (70-130); Calcium 8.8 mg/dL (7.8-10.44); Carbon Dioxide 29 mmol/L (23-31); Chloride 98 mmol/L (98-107); Estimated GFR 69; Globulin 2.9 g/dL (2.4-3.5); Glucose 149 mg/dL (83-110); Potassium 4.7 mmol/L (3.5-5.1); Protein, Total 6.2 g/dL (5.8-8.1); Sodium 137 mmol/L (136-145)
[2022-01-03] MEDS: methylPREDNISolone Sod Succ 40 MG VIAL IVP SCH ×3 (05:42→21:10)
[2022-01-03] MEDS ORDERED: Lactated Ringer's 1,000 ML IV SCH (08:00)
[2022-01-03] MEDS ORDERED: Lidocaine 1% w/Epinephrine 1:100K 20 ML VIAL ONE ×2 (12:59→14:08)
[2022-01-03] MEDS ORDERED: Bupivacaine 0.25% HCL 30 ML VIAL ONE ×2 (12:59→14:08)
[2022-01-03] MEDS ORDERED: SUGAMMADEX SODIUM 200 MG/2 ML VIAL ONE (13:09)
[2022-01-03] MEDS ORDERED: fentaNYL Citrate/PF 100 MCG/2 ML SYRINGE ONE (13:09)
[2022-01-03] MEDS ORDERED: Sodium Chloride 0.9% 100 ML ONE (13:26)
[2022-01-03] MEDS ORDERED: CEFAZOLIN 2 GM VIAL ONE (13:26)
[2022-01-03] MEDS ORDERED: Ondansetron PF 4 MG/2 ML Vial ONE (13:40)
[2022-01-03] MEDS ORDERED: Labetalol HCl 100 MG/20 ML VIAL ONE (13:40)
[2022-01-03] MEDS ORDERED: Dexamethasone 20 MG/5 ML VIAL ONE (13:40)
[2022-01-03] MEDS ORDERED: Lidocaine 1% PF 5 ML VIAL ONE (13:40)
[2022-01-03] MEDS ORDERED: Rocuronium Bromide 10 MG/ML (10ML VIAL) ONE (13:40)
[2022-01-03] MEDS ORDERED: PROPOFOL 200 MG/20 ML VIAL ONE (13:40)
[2022-01-03] MEDS ORDERED: HYDROmorphone 2 MG/ML VIAL ONE (14:46)
[2022-01-03] MEDS ORDERED: Ketamine 50 MG/ML (10ML VIAL) ONE (14:46)
[2022-01-03] MEDS ORDERED: HYDROmorphone 2 MG/ML VIAL SLOW IVP PRN (15:20)
[2022-01-03] MEDS ORDERED: Meperidine HCl/PF 25 MG/ML VIAL SLOW IVP PRN (15:20)
[2022-01-03] MEDS ORDERED: Promethazine HCl 25 MG/ML VIAL IVPB PRN (15:20)
[2022-01-03] MEDS ORDERED: Ondansetron HCl/PF 4 MG/2 ML Vial IVP PRN (15:20)
[2022-01-03] MEDS ORDERED: Promethazine HCl 25 MG/ML VIAL IM PRN (15:20)
[2022-01-03] MEDS: Spironolactone 100 MG TAB PO SCH (15:30)
[2022-01-03] MEDS: Cholecalciferol 1,000 UNITS (25 MCG) TAB PO SCH (15:31)
[2022-01-03] MEDS: Aspirin 81 mg Enteric Coated Tablet PO SCH (15:31)
[2022-01-03] MEDS: Gabapentin 100 MG CAP PO SCH (15:31)
[2022-01-03] MEDS: Calcium Carbonate 600 MG + Vit D TAB PO SCH ×2 (15:31→20:20)
[2022-01-03] MEDS: Docusate 100 MG CAP PO SCH ×2 (15:31→20:20)
[2022-01-03] MEDS: Enoxaparin Sodium 40 MG/0.4 ML SYRINGE SC SCH (15:31)
[2022-01-03] MEDS: Venlafaxine HCl XR 75 MG CAP PO SCH (15:32)
[2022-01-03] MEDS: Polyethylene Glycol 3350 17 GM Packet PO SCH (15:32)
[2022-01-03] MEDS: Melatonin 3 MG TAB PO SCH (20:20)
[2022-01-04] MEDS: cefTRIAXone\\ROCEPHIN 1 GM in Sodium Chloride 0.9% 100 ML IVPB SCH (01:50)
[2022-01-04] MEDS: methylPREDNISolone Sod Succ 40 MG VIAL IVP SCH (05:16)
[2022-01-04] MEDS: Furosemide 40 MG/4 ML VIAL SLOW IVP SCH (05:16)
[2022-01-04 05:27] LABS: #Lymphocytes 0.6 thou/uL (1.20-3.40); #Monocytes 0.7 thou/uL (0.11-0.59); #Neutrophils 11.5 thou/uL (1.40-6.50); %Basophils 0.2 % (0.0-1.0); %Eosinophils 0.2 % (0.0-10.0); %Lymphocytes 4.4 % (21.0-51.0); %Monocytes 5.3 % (0.0-10.0); %Neutrophils 89.9 % (42.0-75.0); Hemoglobin 10.2 g/dL (12.0-16.0); Mean Corpuscular HGB CONC 30.9 g/dL (32.0-36.0); Mean Corpuscular Hemoglobin 34.4 pg (27.0-31.0); Mean Platelet Volume 8.7 fL (7.4-10.4); Platelet Count 153 thou/uL (130-400); RBC Distribution Width 14.4 % (11.5-14.5); Red Blood Cell (RBC) Count 2.97 mill/uL (4.20-5.40); White Blood Cell (WBC) Count 12.8 thou/uL (4.8-10.8)
[2022-01-04 05:51] LABS: ALT (SGPT) 32 U/L (8-55); AST (SGOT) 83 U/L (5-34); Albumin 2.9 g/dL (3.4-4.8); Alkaline Phosphatase 160 U/L (40-110); Anion Gap 19 mmol/L (10-20); BUN (Urea Nitrogen) 32 mg/dL (9.8-20.1); Bilirubin, Total 1.7 mg/dL (0.2-1.2); Calc. Creatinine Clearance 78 mL/min (70-130); Calcium 8.6 mg/dL (7.8-10.44); Carbon Dioxide 21 mmol/L (23-31); Chloride 102 mmol/L (98-107); Estimated GFR 73; Globulin 2.8 g/dL (2.4-3.5); Glucose 120 mg/dL (83-110); Potassium 4.6 mmol/L (3.5-5.1); Protein, Total 5.7 g/dL (5.8-8.1); Sodium 137 mmol/L (136-145)
[2022-01-04] MEDS: Furosemide 40 MG TAB PO SCH ×2 (09:46→14:22)
[2022-01-04] MEDS: Aspirin 81 mg Enteric Coated Tablet PO SCH (09:46)
[2022-01-04] MEDS: Spironolactone 100 MG TAB PO SCH (09:46)
[2022-01-04] MEDS: Calcium Carbonate 600 MG + Vit D TAB PO SCH ×2 (09:46→21:07)
[2022-01-04] MEDS: Gabapentin 100 MG CAP PO SCH (09:47)
[2022-01-04] MEDS: Polyethylene Glycol 3350 17 GM Packet PO SCH (09:49)
[2022-01-04] MEDS: Venlafaxine HCl XR 75 MG CAP PO SCH (09:49)
[2022-01-04] MEDS: Enoxaparin Sodium 40 MG/0.4 ML SYRINGE SC SCH (09:49)
[2022-01-04] MEDS: Docusate 100 MG CAP PO SCH ×2 (09:54→21:07)
[2022-01-04] MEDS: Cholecalciferol 1,000 UNITS (25 MCG) TAB PO SCH (10:08)
[2022-01-04] MEDS: Carvedilol 6.25 MG TAB PO SCH (16:24)
[2022-01-04] MEDS: Melatonin 3 MG TAB PO SCH (21:07)
[2022-01-05] MEDS: cefTRIAXone\\ROCEPHIN 1 GM in Sodium Chloride 0.9% 100 ML IVPB SCH (03:07)
[2022-01-05] MEDS: Docusate 100 MG CAP PO SCH ×2 (08:51→20:11)
[2022-01-05] MEDS: Calcium Carbonate 600 MG + Vit D TAB PO SCH ×2 (08:51→20:11)
[2022-01-05] MEDS: Enoxaparin Sodium 40 MG/0.4 ML SYRINGE SC SCH (08:51)
[2022-01-05] MEDS: Aspirin 81 mg Enteric Coated Tablet PO SCH (08:51)
[2022-01-05] MEDS: Spironolactone 100 MG TAB PO SCH (08:51)
[2022-01-05] MEDS: Cholecalciferol 1,000 UNITS (25 MCG) TAB PO SCH (08:51)
[2022-01-05] MEDS: Furosemide 40 MG TAB PO SCH ×2 (08:52→14:00)
[2022-01-05] MEDS: Gabapentin 100 MG CAP PO SCH (08:52)
[2022-01-05] MEDS: Venlafaxine HCl XR 75 MG CAP PO SCH (08:53)
[2022-01-05] MEDS: Carvedilol 6.25 MG TAB PO SCH ×2 (08:53→16:59)
[2022-01-05] MEDS: Polyethylene Glycol 3350 17 GM Packet PO SCH (08:53)
[2022-01-05 11:54] LABS: ALT (SGPT) 40 U/L (8-55); AST (SGOT) 118 U/L (5-34); Albumin 2.9 g/dL (3.4-4.8); Alkaline Phosphatase 205 U/L (40-110); Anion Gap 13 mmol/L (10-20); BUN (Urea Nitrogen) 44 mg/dL (9.8-20.1); Bilirubin, Total 2.2 mg/dL (0.2-1.2); Calc. Creatinine Clearance 54 mL/min (70-130); Calcium 8.6 mg/dL (7.8-10.44); Carbon Dioxide 32 mmol/L (23-31); Chloride 97 mmol/L (98-107); Estimated GFR 48; Globulin 2.7 g/dL (2.4-3.5); Glucose 116 mg/dL (83-110); Potassium 4.5 mmol/L (3.5-5.1); Protein, Total 5.6 g/dL (5.8-8.1); Sodium 137 mmol/L (136-145)
[2022-01-05] MEDS: traMADol HCl 50 MG TAB PO PRN ×2 (12:42→20:11)
[2022-01-05] MEDS ORDERED: HYDROcodone/Acetaminophen 5/325 mg Tablet PO PRN (15:09)
[2022-01-05] MEDS: Melatonin 3 MG TAB PO SCH (20:11)
[2022-01-06 05:35] LABS: ALT (SGPT) 35 U/L (8-55); AST (SGOT) 94 U/L (5-34); Albumin 2.6 g/dL (3.4-4.8); Alkaline Phosphatase 183 U/L (40-110); Anion Gap 16 mmol/L (10-20); BUN (Urea Nitrogen) 45 mg/dL (9.8-20.1); Bilirubin, Total 2.5 mg/dL (0.2-1.2); Calc. Creatinine Clearance 58 mL/min (70-130); Carbon Dioxide 24 mmol/L (23-31); Chloride 98 mmol/L (98-107); Estimated GFR 52; Globulin 2.7 g/dL (2.4-3.5); Glucose 113 mg/dL (83-110); Potassium 4.6 mmol/L (3.5-5.1); Protein, Total 5.3 g/dL (5.8-8.1); Sodium 133 mmol/L (136-145)
[2022-01-06 06:32] LABS: Band 7 % (5-11); Eosinophils 1 % (0-10); Hemoglobin 10.4 g/dL (12.0-16.0); Lymphocytes 13 % (21-51); MDiff Complete? YES; Mean Corpuscular HGB CONC 30.9 g/dL (32.0-36.0); Mean Corpuscular Hemoglobin 33.9 pg (27.0-31.0); Mean Platelet Volume 7.1 fL (7.4-10.4); Monocytes 4 % (0-10); Neutrophil 75 % (42-75); Platelet Count 256 thou/uL (130-400); RBC Distribution Width 14.3 % (11.5-14.5); Red Blood Cell (RBC) Count 3.08 mill/uL (4.20-5.40); White Blood Cell (WBC) Count 13.7 thou/uL (4.8-10.8)
[2022-01-06] MEDS: Cholecalciferol 1,000 UNITS (25 MCG) TAB PO SCH (08:50)
[2022-01-06] MEDS: Aspirin 81 mg Enteric Coated Tablet PO SCH (08:50)
[2022-01-06] MEDS: Spironolactone 100 MG TAB PO SCH (08:51)
[2022-01-06] MEDS: Docusate 100 MG CAP PO SCH ×2 (08:51→21:40)
[2022-01-06] MEDS: Furosemide 40 MG/4 ML VIAL SLOW IVP SCH (08:51)
[2022-01-06] MEDS: Calcium Carbonate 600 MG + Vit D TAB PO SCH ×2 (08:51→21:40)
[2022-01-06] MEDS: Carvedilol 6.25 MG TAB PO SCH ×2 (08:51→16:49)
[2022-01-06] MEDS: Enoxaparin Sodium 40 MG/0.4 ML SYRINGE SC SCH (08:51)
[2022-01-06] MEDS: Venlafaxine HCl XR 75 MG CAP PO SCH (08:51)
[2022-01-06] MEDS: Polyethylene Glycol 3350 17 GM Packet PO SCH (08:52)
[2022-01-06] MEDS: Clindamycin 150 MG CAP PO SCH ×3 (09:13→21:40)
[2022-01-06] MEDS: Melatonin 3 MG TAB PO SCH (21:40)
[2022-01-07 08:35] LABS: #Eosinphils 0.1 thou/uL (0.0-0.7); #Lymphocytes 1.2 thou/uL (1.20-3.40); #Neutrophils 12.2 thou/uL (1.40-6.50); %Basophils 0.2 % (0.0-1.0); %Eosinophils 0.8 % (0.0-10.0); %Lymphocytes 8.6 % (21.0-51.0); %Monocytes 6.7 % (0.0-10.0); %Neutrophils 83.8 % (42.0-75.0); Hemoglobin 10.4 g/dL (12.0-16.0); Mean Corpuscular HGB CONC 31.8 g/dL (32.0-36.0); Mean Corpuscular Hemoglobin 35.3 pg (27.0-31.0); Mean Platelet Volume 7.4 fL (7.4-10.4); Platelet Count 316 thou/uL (130-400); Red Blood Cell (RBC) Count 2.93 mill/uL (4.20-5.40); White Blood Cell (WBC) Count 14.5 thou/uL (4.8-10.8)
[2022-01-07 08:52] LABS: ALT (SGPT) 34 U/L (8-55); AST (SGOT) 80 U/L (5-34); Albumin 2.5 g/dL (3.4-4.8); Alkaline Phosphatase 189 U/L (40-110); Anion Gap 13 mmol/L (10-20); BUN (Urea Nitrogen) 44 mg/dL (9.8-20.1); Calc. Creatinine Clearance 69 mL/min (70-130); Calcium 9.1 mg/dL (7.8-10.44); Carbon Dioxide 31 mmol/L (23-31); Chloride 97 mmol/L (98-107); Estimated GFR 62; Glucose 116 mg/dL (83-110); Potassium 4.7 mmol/L (3.5-5.1); Protein, Total 5.5 g/dL (5.8-8.1); Sodium 136 mmol/L (136-145)
[2022-01-07] MEDS ORDERED: Vancomycin 1 GM in Premix Bag 1 BAG IVPB SCH (09:00)
[2022-01-07] MEDS: Venlafaxine HCl XR 75 MG CAP PO SCH (09:30)
[2022-01-07] MEDS: Furosemide 40 MG/4 ML VIAL SLOW IVP SCH (09:30)
[2022-01-07] MEDS: Docusate 100 MG CAP PO SCH ×3 (09:30→20:32)
[2022-01-07] MEDS: Aspirin 81 mg Enteric Coated Tablet PO SCH (09:30)
[2022-01-07] MEDS: Calcium Carbonate 600 MG + Vit D TAB PO SCH ×2 (09:30→20:31)
[2022-01-07] MEDS: Spironolactone 100 MG TAB PO SCH (09:31)
[2022-01-07] MEDS: Carvedilol 6.25 MG TAB PO SCH ×2 (09:31→17:17)
[2022-01-07] MEDS: Polyethylene Glycol 3350 17 GM Packet PO SCH (09:32)
[2022-01-07] MEDS: Enoxaparin Sodium 40 MG/0.4 ML SYRINGE SC SCH (09:34)
[2022-01-07] MEDS: Vancomycin 1 GM in Premix Bag 1 BAG IVPB SCH (09:46)
[2022-01-07] MEDS ORDERED: PROPOFOL 200 MG/20 ML VIAL ONE (12:02)
[2022-01-07] MEDS ORDERED: Lidocaine 1% PF 5 ML VIAL ONE (12:02)
[2022-01-07] MEDS: Cholecalciferol 1,000 UNITS (25 MCG) TAB PO SCH (17:17)
[2022-01-07] MEDS: Acetaminophen 325 MG TAB PO PRN (17:18)
[2022-01-07] MEDS: Melatonin 3 MG TAB PO SCH (20:30)
[2022-01-07] MEDS: traMADol HCl 50 MG TAB PO PRN (20:37)
[2022-01-08 05:36] LABS: #Eosinphils 0.2 thou/uL (0.0-0.7); #Lymphocytes 0.9 thou/uL (1.20-3.40); #Monocytes 0.8 thou/uL (0.11-0.59); #Neutrophils 7.8 thou/uL (1.40-6.50); %Basophils 0.1 % (0.0-1.0); %Eosinophils 1.8 % (0.0-10.0); %Lymphocytes 8.9 % (21.0-51.0); %Monocytes 8.7 % (0.0-10.0); %Neutrophils 80.6 % (42.0-75.0); Hemoglobin 9.2 g/dL (12.0-16.0); Mean Corpuscular Hemoglobin 34.6 pg (27.0-31.0); Mean Platelet Volume 7.2 fL (7.4-10.4); Platelet Count 294 thou/uL (130-400); RBC Distribution Width 13.9 % (11.5-14.5); Red Blood Cell (RBC) Count 2.66 mill/uL (4.20-5.40); White Blood Cell (WBC) Count 9.7 thou/uL (4.8-10.8)
[2022-01-08 05:47] LABS: ALT (SGPT) 29 U/L (8-55); AST (SGOT) 66 U/L (5-34); Albumin 2.1 g/dL (3.4-4.8); Alkaline Phosphatase 182 U/L (40-110); Anion Gap 11 mmol/L (10-20); BUN (Urea Nitrogen) 40 mg/dL (9.8-20.1); Bilirubin, Total 2.7 mg/dL (0.2-1.2); Calc. Creatinine Clearance 87 mL/min (70-130); Calcium 8.4 mg/dL (7.8-10.44); Carbon Dioxide 30 mmol/L (23-31); Chloride 99 mmol/L (98-107); Estimated GFR 80; Globulin 2.3 g/dL (2.4-3.5); Glucose 99 mg/dL (83-110); Potassium 4.5 mmol/L (3.5-5.1); Protein, Total 4.4 g/dL (5.8-8.1); Sodium 135 mmol/L (136-145)
[2022-01-08] MEDS: Furosemide 40 MG/4 ML VIAL SLOW IVP SCH ×3 (08:15→22:25)
[2022-01-08] MEDS: Spironolactone 100 MG TAB PO SCH (08:15)
[2022-01-08] MEDS: Carvedilol 6.25 MG TAB PO SCH ×2 (08:15→15:26)
[2022-01-08] MEDS: Cholecalciferol 1,000 UNITS (25 MCG) TAB PO SCH (08:16)
[2022-01-08] MEDS: Venlafaxine HCl XR 75 MG CAP PO SCH (08:17)
[2022-01-08] MEDS: Aspirin 81 mg Enteric Coated Tablet PO SCH (08:17)
[2022-01-08] MEDS: Enoxaparin Sodium 40 MG/0.4 ML SYRINGE SC SCH (08:17)
[2022-01-08] MEDS: Calcium Carbonate 600 MG + Vit D TAB PO SCH ×2 (08:17→22:25)
[2022-01-08] MEDS: Polyethylene Glycol 3350 17 GM Packet PO SCH (08:19)
[2022-01-08] MEDS: Docusate 100 MG CAP PO SCH ×2 (08:19→22:24)
[2022-01-08] MEDS: Vancomycin 1 GM in Premix Bag 1 BAG IVPB SCH (08:20)
[2022-01-08 10:17] VITALS: BMI 36.4
[2022-01-08] MEDS: Melatonin 3 MG TAB PO SCH (22:23)
[2022-01-09 05:01] LABS: #Eosinphils 0.2 thou/uL (0.0-0.7); #Lymphocytes 1.1 thou/uL (1.20-3.40); #Monocytes 0.8 thou/uL (0.11-0.59); #Neutrophils 7.4 thou/uL (1.40-6.50); %Basophils 0.1 % (0.0-1.0); %Eosinophils 1.9 % (0.0-10.0); %Lymphocytes 11.6 % (21.0-51.0); %Monocytes 8.1 % (0.0-10.0); %Neutrophils 78.4 % (42.0-75.0); Hemoglobin 10.8 g/dL (12.0-16.0); Mean Corpuscular HGB CONC 32.6 g/dL (32.0-36.0); Mean Corpuscular Hemoglobin 35.7 pg (27.0-31.0); Platelet Count 350 thou/uL (130-400); Red Blood Cell (RBC) Count 3.02 mill/uL (4.20-5.40); White Blood Cell (WBC) Count 9.4 thou/uL (4.8-10.8)
[2022-01-09 07:03] LABS: ALT (SGPT) 33 U/L (8-55); AST (SGOT) 95 U/L (5-34); Albumin 2.2 g/dL (3.4-4.8); Alkaline Phosphatase 243 U/L (40-110); Anion Gap 11 mmol/L (10-20); BUN (Urea Nitrogen) 42 mg/dL (9.8-20.1); Bilirubin, Total 2.5 mg/dL (0.2-1.2); Calc. Creatinine Clearance 77 mL/min (70-130); Calcium 8.5 mg/dL (7.8-10.44); Carbon Dioxide 30 mmol/L (23-31); Chloride 96 mmol/L (98-107); Estimated GFR 70; Globulin 2.9 g/dL (2.4-3.5); Glucose 93 mg/dL (83-110); Potassium 4.8 mmol/L (3.5-5.1); Protein, Total 5.1 g/dL (5.8-8.1); Sodium 132 mmol/L (136-145)
[2022-01-09 08:09] LABS: Vancomycin, Trough 10.2 ug/mL
[2022-01-09] MEDS: Cholecalciferol 1,000 UNITS (25 MCG) TAB PO SCH (08:11)
[2022-01-09] MEDS: Aspirin 81 mg Enteric Coated Tablet PO SCH (08:12)
[2022-01-09] MEDS: Venlafaxine HCl XR 75 MG CAP PO SCH (08:12)
[2022-01-09] MEDS: Spironolactone 100 MG TAB PO SCH ×2 (08:12→08:24)
[2022-01-09] MEDS: Furosemide 40 MG/4 ML VIAL SLOW IVP SCH (08:12)
[2022-01-09] MEDS: Docusate 100 MG CAP PO SCH ×2 (08:12→20:04)
[2022-01-09] MEDS: Calcium Carbonate 600 MG + Vit D TAB PO SCH ×2 (08:12→20:03)
[2022-01-09] MEDS: Vancomycin 1 GM in Premix Bag 1 BAG IVPB SCH (08:13)
[2022-01-09] MEDS: Polyethylene Glycol 3350 17 GM Packet PO SCH (08:13)
[2022-01-09] MEDS: Carvedilol 6.25 MG TAB PO SCH ×2 (08:49→18:33)
[2022-01-09] MEDS: Enoxaparin Sodium 40 MG/0.4 ML SYRINGE SC SCH (08:49)
[2022-01-09] MEDS: Melatonin 3 MG TAB PO SCH (20:03)
[2022-01-09] MEDS: Acetaminophen 325 MG TAB PO PRN (20:04)
[2022-01-10 06:50] LABS: ALT (SGPT) 33 U/L (8-55); AST (SGOT) 83 U/L (5-34); Albumin 2.2 g/dL (3.4-4.8); Alkaline Phosphatase 263 U/L (40-110); Anion Gap 15 mmol/L (10-20); BUN (Urea Nitrogen) 41 mg/dL (9.8-20.1); Bilirubin, Total 2.6 mg/dL (0.2-1.2); Calc. Creatinine Clearance 76 mL/min (70-130); Calcium 8.7 mg/dL (7.8-10.44); Carbon Dioxide 25 mmol/L (23-31); Chloride 96 mmol/L (98-107); Estimated GFR 68; Globulin 2.6 g/dL (2.4-3.5); Glucose 110 mg/dL (83-110); Potassium 4.2 mmol/L (3.5-5.1); Protein, Total 4.8 g/dL (5.8-8.1); Sodium 132 mmol/L (136-145)
[2022-01-10 07:09] LABS: #Eosinphils 0.2 thou/uL (0.0-0.7); #Monocytes 0.9 thou/uL (0.11-0.59); #Neutrophils 8.5 thou/uL (1.40-6.50); %Basophils 0.2 % (0.0-1.0); %Eosinophils 1.4 % (0.0-10.0); %Lymphocytes 9.8 % (21.0-51.0); %Monocytes 8.5 % (0.0-10.0); %Neutrophils 80.1 % (42.0-75.0); Hemoglobin 10.9 g/dL (12.0-16.0); Mean Corpuscular HGB CONC 31.5 g/dL (32.0-36.0); Mean Corpuscular Hemoglobin 34.7 pg (27.0-31.0); Mean Platelet Volume 7.1 fL (7.4-10.4); Platelet Count 383 thou/uL (130-400); RBC Distribution Width 14.1 % (11.5-14.5); Red Blood Cell (RBC) Count 3.13 mill/uL (4.20-5.40); White Blood Cell (WBC) Count 10.5 thou/uL (4.8-10.8)
[2022-01-10] MEDS ORDERED: Spironolactone 100 MG TAB PO SCH (08:00)
[2022-01-10] MEDS ORDERED: Furosemide 20 MG TAB PO SCH (09:00)
[2022-01-10] MEDS: Cholecalciferol 1,000 UNITS (25 MCG) TAB PO SCH (09:28)
[2022-01-10] MEDS: Aspirin 81 mg Enteric Coated Tablet PO SCH (09:29)
[2022-01-10] MEDS: Polyethylene Glycol 3350 17 GM Packet PO SCH (09:29)
[2022-01-10] MEDS: Calcium Carbonate 600 MG + Vit D TAB PO SCH (09:30)
[2022-01-10] MEDS: Docusate 100 MG CAP PO SCH (09:30)
[2022-01-10] MEDS: Venlafaxine HCl XR 75 MG CAP PO SCH (09:30)
[2022-01-10] MEDS: Carvedilol 6.25 MG TAB PO SCH ×2 (09:30→16:34)
[2022-01-10] MEDS: Enoxaparin Sodium 40 MG/0.4 ML SYRINGE SC SCH (09:31)
[2022-01-10] MEDS: Vancomycin 1 GM in Premix Bag 1 BAG IVPB SCH (09:32)
[2022-01-10] MEDS ORDERED: Bumetanide 1 MG TAB PO SCH ×3 (09:45→16:30)
[2022-01-10 15:43] VITALS: BP 106/45; TEMP 97.7
[2022-01-10] MEDS: Acetaminophen 325 MG TAB PO PRN (16:34)
== END 2022-01-10 18:01 | DRG 420 ==
LOC: ERS 16:53 → NEURO 21:14
PROVIDERS: ADMIT Student in an Organized Health Care Education/Training Program; ATTEND Internal Medicine
PROC: 0W9G3ZZ Drainage of Peritoneal Cavity, Percutaneous Approach (ICD-10-PCS; 2021-12-28)
PROC: 0FB14ZX Excision of Right Lobe Liver, Percutaneous Endoscopic Approach, Diagnostic (ICD-10-PCS; principal; 2022-01-02)
PROC: 0W9G3ZZ Drainage of Peritoneal Cavity, Percutaneous Approach (ICD-10-PCS; 2022-01-02)
PROC: 0DB78ZZ Excision of Stomach, Pylorus, Via Natural or Artificial Opening Endoscopic (ICD-10-PCS; 2022-01-07)
DX: K74.60 Unspecified cirrhosis of liver (principal); I50.33 Acute on chronic diastolic (congestive) heart failure; J96.01 Acute respiratory failure with hypoxia; R18.8 Other ascites; M84.48XA Pathological fracture, other site, initial encounter for fracture; K76.6 Portal hypertension; N17.9 Acute kidney failure, unspecified; L03.311 Cellulitis of abdominal wall; Z66 Do not resuscitate; Z20.822 Contact with and (suspected) exposure to COVID-19; I11.0 Hypertensive heart disease with heart failure; E78.00 Pure hypercholesterolemia, unspecified; N20.0 Calculus of kidney; F41.9 Anxiety disorder, unspecified; F32.A Depression, unspecified; G47.33 Obstructive sleep apnea (adult) (pediatric); I48.0 Paroxysmal atrial fibrillation; D69.6 Thrombocytopenia, unspecified; E66.9 Obesity, unspecified; K66.0 Peritoneal adhesions (postprocedural) (postinfection); B18.2 Chronic viral hepatitis C; K31.89 Other diseases of stomach and duodenum; K31.7 Polyp of stomach and duodenum; Z96.651 Presence of right artificial knee joint; Z90.710 Acquired absence of both cervix and uterus; Z90.49 Acquired absence of other specified parts of digestive tract; Z91.040 Latex allergy status; Z91.048 Other nonmedicinal substance allergy status; Z79.899 Other long term (current) drug therapy; Z79.82 Long term (current) use of aspirin; Z95.0 Presence of cardiac pacemaker; Z80.8 Family history of malignant neoplasm of other organs or systems; Z68.36 Body mass index [BMI] 36.0-36.9, adult
CPT/HCPCS: 36415; 49083; 71045; 71250; 74177; 76856; 80048; 80053; 80074; 80202; 81003; 81015; 82042; 82105; 82378; 82390; 82728; 83516; 83540; 83550; 83615; 83690; 83735; 83880; 83986; 84157; 84484; 85025; 85060; 85610; 86015; 86038; 86140; 86225; 86301; 86304; 87070; 87205; 88112; 88305; 88307; 88313; 89051; 93005; 93306; 93798; 94640; 94660; 96374; 97139; J0690; J0696; J1100; J1170; J1650; J1940; J2405; J2704; J2920; J3370; J3490; J7620; P9047; Q0162; Q9966; S0020; U0002; U0003; U0005

== ENCOUNTER 2022-02-09 09:04 | Observation (INO) | payer MEDICARE ==
[2022-02-09] MEDS ORDERED: Iopamidol-370 76% 500 ML 1 ML ONE (09:25)
[2022-02-09 11:46] LABS: #Lymphocytes 1.1 thou/uL (1.20-3.40); #Monocytes 0.9 thou/uL (0.11-0.59); #Neutrophils 7.3 thou/uL (1.40-6.50); %Basophils 0.1 % (0.0-1.0); %Eosinophils 0.1 % (0.0-10.0); %Monocytes 9.5 % (0.0-10.0); %Neutrophils 78.3 % (42.0-75.0); Hemoglobin 10.6 g/dL (12.0-16.0); Mean Corpuscular Hemoglobin 34.3 pg (27.0-31.0); Mean Platelet Volume 7.1 fL (7.4-10.4); Platelet Count 326 thou/uL (130-400); RBC Distribution Width 14.2 % (11.5-14.5); Red Blood Cell (RBC) Count 3.11 mill/uL (4.20-5.40); White Blood Cell (WBC) Count 9.3 thou/uL (4.8-10.8)
[2022-02-09 12:19] LABS: ALT (SGPT) 36 U/L (8-55); AST (SGOT) 92 U/L (5-34); Albumin 2.9 g/dL (3.4-4.8); Alkaline Phosphatase 214 U/L (40-110); Anion Gap 17 mmol/L (10-20); BUN (Urea Nitrogen) 37 mg/dL (9.8-20.1); Bilirubin, Total 1.4 mg/dL (0.2-1.2); Calc. Creatinine Clearance 0 mL/min (70-130); Calcium 8.8 mg/dL (7.8-10.44); Carbon Dioxide 24 mmol/L (23-31); Chloride 100 mmol/L (98-107); Estimated GFR 50; Globulin 3.9 g/dL (2.4-3.5); Glucose 120 mg/dL (83-110); Lipase 53 U/L (8-78); Potassium 4.4 mmol/L (3.5-5.1); Protein, Total 6.8 g/dL (5.8-8.1); Sodium 137 mmol/L (136-145)
[2022-02-09] MEDS ORDERED: Ondansetron PF 4 MG/2 ML Vial IVP PRN (16:18)
[2022-02-09] MEDS ORDERED: Acetaminophen 325 MG TAB PO PRN ×2 (16:18→19:16)
[2022-02-09] MEDS ORDERED: Ondansetron ODT 4 MG TAB PO PRN (16:18)
[2022-02-09] MEDS ORDERED: Senokot S 8.6-50 MG TAB PO PRN (16:18)
[2022-02-09] MEDS ORDERED: Magnesium Citrate 300 ML BOT PO SCH (16:30)
[2022-02-09] MEDS ORDERED: Carvedilol 6.25 MG TAB PO SCH (17:00)
[2022-02-09] MEDS ORDERED: Bisacodyl 5 MG TAB PO SCH (19:30)
[2022-02-09] MEDS ORDERED: Bisacodyl 10 MG SUPP PR SCH (20:30)
[2022-02-09 21:47] LABS: INR-International Normal Ratio 1.2; Prothrombin Time 15.8 sec (12.0-14.7)
[2022-02-09] MEDS ORDERED: Milk Of Magnesia 30 ML UDCUP PO PRN (22:20)
[2022-02-09] MEDS ORDERED: Calcium Carbonate 500 MG ChewTAB PO PRN (22:21)
[2022-02-09] MEDS: Gabapentin 100 MG CAP PO SCH (22:29)
[2022-02-09] MEDS: Bumetanide 1 MG TAB PO SCH (22:29)
[2022-02-09] MEDS: Calcium Carbonate 600 MG + Vit D TAB PO SCH (22:30)
[2022-02-10 07:31] LABS: ALT (SGPT) 33 U/L (8-55); AST (SGOT) 71 U/L (5-34); Albumin 2.9 g/dL (3.4-4.8); Alkaline Phosphatase 200 U/L (40-110); Anion Gap 14 mmol/L (10-20); BUN (Urea Nitrogen) 35 mg/dL (9.8-20.1); Bilirubin, Total 1.6 mg/dL (0.2-1.2); Calc. Creatinine Clearance 58 mL/min (70-130); Calcium 8.9 mg/dL (7.8-10.44); Carbon Dioxide 28 mmol/L (23-31); Chloride 103 mmol/L (98-107); Estimated GFR 63; Globulin 3.6 g/dL (2.4-3.5); Glucose 90 mg/dL (83-110); Potassium 3.9 mmol/L (3.5-5.1); Protein, Total 6.5 g/dL (5.8-8.1); Sodium 141 mmol/L (136-145)
[2022-02-10] MEDS ORDERED: Spironolactone 100 MG TAB PO SCH (08:00)
[2022-02-10 08:21] LABS: #Lymphocytes 1.4 thou/uL (1.20-3.40); #Monocytes 0.8 thou/uL (0.11-0.59); #Neutrophils 6.7 thou/uL (1.40-6.50); %Basophils 0.3 % (0.0-1.0); %Eosinophils 0.5 % (0.0-10.0); %Lymphocytes 15.7 % (21.0-51.0); %Neutrophils 74.6 % (42.0-75.0); Hemoglobin 10.2 g/dL (12.0-16.0); Mean Corpuscular Hemoglobin 34.1 pg (27.0-31.0); Mean Platelet Volume 6.7 fL (7.4-10.4); Platelet Count 323 thou/uL (130-400); RBC Distribution Width 14.2 % (11.5-14.5)
[2022-02-10] MEDS: Spironolactone 100 MG TAB PO SCH (08:56)
[2022-02-10] MEDS: Multivitamin W/ Minerals 1 TAB PO SCH (08:56)
[2022-02-10] MEDS: Bumetanide 1 MG TAB PO SCH ×2 (08:56→20:20)
[2022-02-10] MEDS: Aspirin 81 mg Enteric Coated Tablet PO SCH (08:56)
[2022-02-10] MEDS: Calcium Carbonate 600 MG + Vit D TAB PO SCH ×2 (08:56→20:20)
[2022-02-10] MEDS: Enoxaparin Sodium 40 MG/0.4 ML SYRINGE SC SCH (08:56)
[2022-02-10] MEDS: Venlafaxine HCl XR 75 MG CAP PO SCH (08:56)
[2022-02-10] MEDS ORDERED: Senokot S 8.6-50 MG TAB PO SCH (09:00)
[2022-02-10] MEDS ORDERED: Fenofibrate Nanocrystallized 145 MG TAB PO SCH (09:00)
[2022-02-10] MEDS ORDERED: Bumetanide 1 MG TAB PO SCH (09:00)
[2022-02-10] MEDS ORDERED: Aspirin 81 mg Enteric Coated Tablet PO SCH (09:00)
[2022-02-10 10:18] VITALS: BMI 30.1
[2022-02-10] MEDS ORDERED: Bisacodyl 10 MG SUPP PR SCH (12:30)
[2022-02-10] MEDS: Gabapentin 100 MG CAP PO SCH (20:21)
[2022-02-10] MEDS ORDERED: Melatonin 3 MG TAB PO SCH (21:00)
[2022-02-11 06:42] LABS: Mean Corpuscular HGB CONC 32.1 g/dL (32.0-36.0); Mean Corpuscular Hemoglobin 33.9 pg (27.0-31.0); Mean Platelet Volume 6.4 fL (7.4-10.4); Platelet Count 271 thou/uL (130-400); RBC Distribution Width 14.1 % (11.5-14.5); Red Blood Cell (RBC) Count 2.94 mill/uL (4.20-5.40); White Blood Cell (WBC) Count 7.3 thou/uL (4.8-10.8)
[2022-02-11 06:43] LABS: Band 1 % (5-11); Lymphocytes 26 % (21-51); MDiff Complete? YES; Macrocytosis SLIGHT = 6-15 cells (100X) (0-5/hpf); Monocytes 8 % (0-10); Neutrophil 64 % (42-75); Platelet Morphology Comment Appears Adequate; Reactive Lymphocytes 1 % (0-10)
[2022-02-11 06:47] LABS: ALT (SGPT) 29 U/L (8-55); AST (SGOT) 55 U/L (5-34); Albumin 2.7 g/dL (3.4-4.8); Alkaline Phosphatase 187 U/L (40-110); Anion Gap 12 mmol/L (10-20); BUN (Urea Nitrogen) 32 mg/dL (9.8-20.1); Bilirubin, Total 1.5 mg/dL (0.2-1.2); Calc. Creatinine Clearance 60 mL/min (70-130); Calcium 8.7 mg/dL (7.8-10.44); Carbon Dioxide 29 mmol/L (23-31); Chloride 101 mmol/L (98-107); Estimated GFR 66; Globulin 3.3 g/dL (2.4-3.5); Glucose 87 mg/dL (83-110); Potassium 3.8 mmol/L (3.5-5.1); Sodium 138 mmol/L (136-145)
[2022-02-11] MEDS ORDERED: Polyethylene Glycol 3350 17 GM Packet PO SCH (09:00)
[2022-02-11] MEDS ORDERED: Folic Acid 1 MG TAB PO SCH (09:00)
[2022-02-11] MEDS ORDERED: Bisacodyl 10 MG SUPP PR SCH (09:00)
[2022-02-11 09:01] VITALS: BP 106/68; TEMP 97.9
[2022-02-11] MEDS: Multivitamin W/ Minerals 1 TAB PO SCH (09:06)
[2022-02-11] MEDS: Bumetanide 1 MG TAB PO SCH (09:06)
[2022-02-11] MEDS: Aspirin 81 mg Enteric Coated Tablet PO SCH (09:06)
[2022-02-11] MEDS: Venlafaxine HCl XR 75 MG CAP PO SCH (09:06)
[2022-02-11] MEDS: Spironolactone 100 MG TAB PO SCH (09:06)
[2022-02-11] MEDS: Calcium Carbonate 600 MG + Vit D TAB PO SCH (09:06)
[2022-02-11] MEDS: Enoxaparin Sodium 40 MG/0.4 ML SYRINGE SC SCH (09:06)
== END 2022-02-11 15:13 ==
LOC: ERS 09:04 → T4-B 16:05
PROVIDERS: ADMIT Family Medicine; ATTEND Family Medicine
DX: K52.89 Other specified noninfective gastroenteritis and colitis (principal); K59.00 Constipation, unspecified; S91.302A Unspecified open wound, left foot, initial encounter; K74.60 Unspecified cirrhosis of liver; R18.8 Other ascites; J90 Pleural effusion, not elsewhere classified; N13.30 Unspecified hydronephrosis; I13.0 Hypertensive heart and chronic kidney disease with heart failure and stage 1 through stage 4 chronic kidney disease, or unspecified chronic kidney disease; N18.2 Chronic kidney disease, stage 2 (mild); I50.30 Unspecified diastolic (congestive) heart failure; N17.9 Acute kidney failure, unspecified; D53.9 Nutritional anemia, unspecified; I48.91 Unspecified atrial fibrillation; K21.9 Gastro-esophageal reflux disease without esophagitis; K76.6 Portal hypertension; N13.4 Hydroureter; Z79.82 Long term (current) use of aspirin; Z79.899 Other long term (current) drug therapy; Z91.048 Other nonmedicinal substance allergy status; Z95.818 Presence of other cardiac implants and grafts; Z20.822 Contact with and (suspected) exposure to COVID-19
CPT/HCPCS: 74177; 80053 ×3; 82607; 83690; 85025 ×3; 85610; 85730; 96372 ×2; 97110; 97116; 97139; 97530; G0378 ×4; U0003; U0005; 36415; J1650; Q9967

== ENCOUNTER 2022-04-06 08:26 | Day surgery (SDC) | payer MEDICARE ==
[2022-04-05 13:50] VITALS: BMI 33.1
[2022-04-06 08:54] LABS: #Monocytes 0.9 thou/uL (0.11-0.59); #Neutrophils 5.5 thou/uL (1.40-6.50); %Basophils 0.3 % (0.0-1.0); %Eosinophils 0.4 % (0.0-10.0); %Lymphocytes 12.8 % (21.0-51.0); %Monocytes 12.3 % (0.0-10.0); %Neutrophils 74.1 % (42.0-75.0); Hemoglobin 9.9 g/dL (12.0-16.0); Mean Corpuscular HGB CONC 30.6 g/dL (32.0-36.0); Mean Corpuscular Hemoglobin 31.1 pg (27.0-31.0); Platelet Count 332 thou/uL (130-400); RBC Distribution Width 14.1 % (11.5-14.5); Red Blood Cell (RBC) Count 3.17 mill/uL (4.20-5.40); White Blood Cell (WBC) Count 7.5 thou/uL (4.8-10.8)
[2022-04-06 08:59] LABS: INR-International Normal Ratio 1.2; PTT 29.5 sec (22.9-36.1)
[2022-04-06] MEDS ORDERED: Lidocaine 2% PF 5 ML VIAL ONE (09:11)
[2022-04-06] MEDS ORDERED: Sodium Bicarbonate 2.5 MEQ/5 ML VIAL ONE (09:11)
[2022-04-06 10:02] VITALS: BP 139/76
== END 2022-04-06 09:55 | disposition home or self-care (01) ==
LOC: ULT 08:26
PROVIDERS: ATTEND Physician Assistant Medical
DX: R18.8 Other ascites (principal); K74.60 Unspecified cirrhosis of liver; Z91.048 Other nonmedicinal substance allergy status
CPT/HCPCS: 76705; 85025; 85610; 85730; J2001

== ENCOUNTER 2022-04-10 14:32 | Inpatient (IN) | payer MEDICARE ==
[~2022-04-10 14:32] MED LIST changes: -ISOVUE-370 76%-LOCM 1 ML ONE; +Iopamidol-370 76% 500 ML 1 ML ONE
[2022-04-10 15:07] LABS: #Eosinphils 0.1 thou/uL (0.0-0.7); #Lymphocytes 1.4 thou/uL (1.20-3.40); #Monocytes 0.8 thou/uL (0.11-0.59); #Neutrophils 4.9 thou/uL (1.40-6.50); %Basophils 0.2 % (0.0-1.0); %Eosinophils 0.7 % (0.0-10.0); %Lymphocytes 19.3 % (21.0-51.0); %Monocytes 11.8 % (0.0-10.0); Mean Corpuscular HGB CONC 30.9 g/dL (32.0-36.0); Mean Platelet Volume 6.2 fL (7.4-10.4); Platelet Count 286 thou/uL (130-400); RBC Distribution Width 14.2 % (11.5-14.5); Red Blood Cell (RBC) Count 2.89 mill/uL (4.20-5.40); White Blood Cell (WBC) Count 7.1 thou/uL (4.8-10.8)
[2022-04-10 15:43] LABS: ALT (SGPT) 29 U/L (8-55); AST (SGOT) 62 U/L (5-34); Albumin 3.1 g/dL (3.4-4.8); Alkaline Phosphatase 213 U/L (40-110); Anion Gap 12 mmol/L (10-20); BUN (Urea Nitrogen) 21 mg/dL (9.8-20.1); Bilirubin, Total 1.2 mg/dL (0.2-1.2); Calc. Creatinine Clearance 0 mL/min (70-130); Calcium 8.7 mg/dL (7.8-10.44); Carbon Dioxide 28 mmol/L (23-31); Chloride 97 mmol/L (98-107); Estimated GFR 80; Globulin 3.3 g/dL (2.4-3.5); Glucose 97 mg/dL (83-110); Lipase 30 U/L (8-78); Potassium 4.1 mmol/L (3.5-5.1); Protein, Total 6.4 g/dL (5.8-8.1); Sodium 133 mmol/L (136-145)
[2022-04-10] MEDS ORDERED: Furosemide 40 MG TAB ONE (16:29)
[2022-04-10] MEDS ORDERED: Furosemide 40 MG/4 ML VIAL ONE (16:30)
[2022-04-10] MEDS ORDERED: Fleet Enema 133 ML BOT PR SCH ×2 (16:45→21:00)
[2022-04-10] MEDS ORDERED: Piperacillin/Tazobactam 3.375 GM VIAL ONE (17:43)
[2022-04-10] MEDS ORDERED: Bisacodyl 10 MG SUPP PR PRN (19:14)
[2022-04-10] MEDS ORDERED: Senokot S 8.6-50 MG TAB PO PRN (19:14)
[2022-04-10] MEDS ORDERED: traMADol HCl 50 MG TAB PO PRN (19:17)
[2022-04-10 19:44] LABS: Phosphorus 3.5 mg/dL (2.3-4.7)
[2022-04-10 19:45] LABS: Magnesium 1.7 mg/dL (1.6-2.6)
[2022-04-10 20:14] VITALS: BMI 32.9
[2022-04-10] MEDS: Gabapentin 100 MG CAP PO SCH (21:52)
[2022-04-10] MEDS: Melatonin 3 MG TAB PO SCH (21:52)
[2022-04-11] MEDS ORDERED: Ondansetron ODT 4 MG TAB PO PRN (03:45)
[2022-04-11] MEDS ORDERED: Polyethylene Glycol 3350 17 GM Packet PO PRN (03:53)
[2022-04-11 04:47] LABS: #Lymphocytes 1.2 thou/uL (1.20-3.40); #Monocytes 0.8 thou/uL (0.11-0.59); #Neutrophils 3.9 thou/uL (1.40-6.50); %Basophils 0.4 % (0.0-1.0); %Eosinophils 0.6 % (0.0-10.0); %Lymphocytes 19.8 % (21.0-51.0); %Monocytes 12.8 % (0.0-10.0); %Neutrophils 66.4 % (42.0-75.0); Hemoglobin 8.9 g/dL (12.0-16.0); Mean Corpuscular HGB CONC 31.5 g/dL (32.0-36.0); Mean Corpuscular Hemoglobin 31.5 pg (27.0-31.0); Mean Platelet Volume 6.1 fL (7.4-10.4); Platelet Count 282 thou/uL (130-400); Red Blood Cell (RBC) Count 2.82 mill/uL (4.20-5.40); White Blood Cell (WBC) Count 5.9 thou/uL (4.8-10.8)
[2022-04-11 05:54] LABS: Anion Gap 12 mmol/L (10-20); BUN (Urea Nitrogen) 20 mg/dL (9.8-20.1); Calc. Creatinine Clearance 78 mL/min (70-130); Calcium 8.4 mg/dL (7.8-10.44); Carbon Dioxide 29 mmol/L (23-31); Chloride 97 mmol/L (98-107); Estimated GFR 80; Glucose 82 mg/dL (83-110); Potassium 3.6 mmol/L (3.5-5.1); Sodium 134 mmol/L (136-145)
[2022-04-11] MEDS: Trospium 20 MG TAB PO SCH ×2 (08:34→21:58)
[2022-04-11] MEDS: Senokot S 8.6-50 MG TAB PO SCH ×2 (08:34→21:58)
[2022-04-11] MEDS: Acetaminophen 325 MG TAB PO SCH ×2 (08:35→21:57)
[2022-04-11] MEDS: Calcium Carbonate 600 MG + Vit D TAB PO SCH (08:36)
[2022-04-11] MEDS: Venlafaxine HCl XR 75 MG CAP PO SCH (08:36)
[2022-04-11] MEDS ORDERED: Bumetanide 1 MG TAB PO SCH (09:00)
[2022-04-11] MEDS ORDERED: Furosemide 40 MG/4 ML VIAL SLOW IVP SCH ×2 (11:00→17:00)
[2022-04-11] MEDS: Gabapentin 100 MG CAP PO SCH (21:56)
[2022-04-11] MEDS: Polyethylene Glycol 3350 17 GM Packet PO SCH (21:56)
[2022-04-11] MEDS: Melatonin 3 MG TAB PO SCH (21:57)
[2022-04-12 05:08] LABS: #Eosinphils 0.1 thou/uL (0.0-0.7); #Lymphocytes 1.1 thou/uL (1.20-3.40); #Monocytes 0.7 thou/uL (0.11-0.59); #Neutrophils 4.7 thou/uL (1.40-6.50); %Basophils 0.1 % (0.0-1.0); %Lymphocytes 16.4 % (21.0-51.0); %Monocytes 10.5 % (0.0-10.0); %Neutrophils 71.9 % (42.0-75.0); Hemoglobin 8.7 g/dL (12.0-16.0); Mean Corpuscular Volume 99.7 fL (78.0-98.0); Mean Platelet Volume 6.1 fL (7.4-10.4); Platelet Count 260 thou/uL (130-400); RBC Distribution Width 14.3 % (11.5-14.5); Red Blood Cell (RBC) Count 2.81 mill/uL (4.20-5.40); White Blood Cell (WBC) Count 6.6 thou/uL (4.8-10.8)
[2022-04-12 05:37] LABS: Anion Gap 10 mmol/L (10-20); BUN (Urea Nitrogen) 21 mg/dL (9.8-20.1); Calc. Creatinine Clearance 75 mL/min (70-130); Calcium 9.2 mg/dL (7.8-10.44); Carbon Dioxide 33 mmol/L (23-31); Chloride 95 mmol/L (98-107); Estimated GFR 76; Glucose 101 mg/dL (83-110); Potassium 3.7 mmol/L (3.5-5.1); Sodium 134 mmol/L (136-145)
[2022-04-12] MEDS ORDERED: Senokot 8.6 MG TAB PO SCH (09:00)
[2022-04-12] MEDS: Senokot S 8.6-50 MG TAB PO SCH (09:41)
[2022-04-12] MEDS: Trospium 20 MG TAB PO SCH (09:41)
[2022-04-12] MEDS: Venlafaxine HCl XR 75 MG CAP PO SCH (09:41)
[2022-04-12] MEDS: Acetaminophen 325 MG TAB PO SCH (09:41)
[2022-04-12] MEDS: Calcium Carbonate 600 MG + Vit D TAB PO SCH (09:42)
[2022-04-12] MEDS: Polyethylene Glycol 3350 17 GM Packet PO SCH (09:43)
[2022-04-12 13:58] VITALS: BP 145/63; TEMP 97.3
[2022-04-13] MEDS ORDERED: FLU VACC QS2022-23(65YR UP)/PF 240 MCG/0.7 ML SYRINGE IM ONE (09:00)
== END 2022-04-12 14:53 | disposition home or self-care (01) | DRG 291 ==
LOC: ERS 14:32 → 2SW 18:21 → OBSVTOIN 04-11 10:48
PROVIDERS: ADMIT Hospitalist; ATTEND Hospitalist
DX: I11.0 Hypertensive heart disease with heart failure (principal); I50.33 Acute on chronic diastolic (congestive) heart failure; K76.6 Portal hypertension; K52.89 Other specified noninfective gastroenteritis and colitis; K74.60 Unspecified cirrhosis of liver; F41.9 Anxiety disorder, unspecified; F32.A Depression, unspecified; K59.00 Constipation, unspecified; Z96.651 Presence of right artificial knee joint; G89.29 Other chronic pain; K21.9 Gastro-esophageal reflux disease without esophagitis; E78.00 Pure hypercholesterolemia, unspecified; Z91.09 Other allergy status, other than to drugs and biological substances; Z79.899 Other long term (current) drug therapy; Z95.818 Presence of other cardiac implants and grafts; Z90.710 Acquired absence of both cervix and uterus; Z90.49 Acquired absence of other specified parts of digestive tract; Z98.890 Other specified postprocedural states; Z80.0 Family history of malignant neoplasm of digestive organs
CPT/HCPCS: 36415; 71045; 74177; 80048; 80053; 82140; 83605; 83690; 83735; 83880; 84100; 85025; 87040; 96374; 96375; G0378; J1940; J2543; Q9967; U0003; U0005

== ENCOUNTER 2022-04-20 08:11 | Day surgery (SDC) | payer MEDICARE ==
[2022-04-19 09:57] VITALS: BMI 33.3
[2022-04-20] MEDS ORDERED: PROPOFOL 200 MG/20 ML VIAL ONE (10:22)
[2022-04-20] MEDS ORDERED: PHENYLEPHRINE-NS 100 MCG/ML 10 ML SYRINGE ONE (10:22)
[2022-04-20] MEDS ORDERED: Phenylephrine 10 MG/ML VIAL ONE (11:07)
== END 2022-04-20 11:38 | disposition home or self-care (01) ==
LOC: SDC 08:11
PROVIDERS: ATTEND Internal Medicine Gastroenterology
PROC: 0DJD8ZZ Inspection of Lower Intestinal Tract, Via Natural or Artificial Opening Endoscopic (ICD-10-PCS; principal; 2022-04-20)
DX: K57.30 Diverticulosis of large intestine without perforation or abscess without bleeding (principal); K64.8 Other hemorrhoids; D64.9 Anemia, unspecified; R19.5 Other fecal abnormalities; G47.33 Obstructive sleep apnea (adult) (pediatric); K21.9 Gastro-esophageal reflux disease without esophagitis; I48.91 Unspecified atrial fibrillation; K74.60 Unspecified cirrhosis of liver; I11.0 Hypertensive heart disease with heart failure; I50.9 Heart failure, unspecified; E78.5 Hyperlipidemia, unspecified; E66.9 Obesity, unspecified; Z68.32 Body mass index [BMI] 32.0-32.9, adult; Z86.010 Personal history of colon polyps; Z79.899 Other long term (current) drug therapy; Z91.040 Latex allergy status; Z91.048 Other nonmedicinal substance allergy status
CPT/HCPCS: J2370

== ENCOUNTER 2022-04-22 10:49 | Inpatient (IN) | payer MEDICARE ==
[2022-04-22 12:02] LABS: ALT (SGPT) 27 U/L (8-55); AST (SGOT) 56 U/L (5-34); Albumin 3.1 g/dL (3.4-4.8); Alkaline Phosphatase 205 U/L (40-110); Anion Gap 13 mmol/L (10-20); BUN (Urea Nitrogen) 17 mg/dL (9.8-20.1); Bilirubin, Total 1.3 mg/dL (0.2-1.2); Calc. Creatinine Clearance 0 mL/min (70-130); Calcium 8.9 mg/dL (7.8-10.44); Carbon Dioxide 29 mmol/L (23-31); Chloride 100 mmol/L (98-107); Estimated GFR 72; Globulin 3.9 g/dL (2.4-3.5); Glucose 87 mg/dL (83-110); Lipase 22 U/L (8-78); Magnesium 1.7 mg/dL (1.6-2.6); Potassium 4.5 mmol/L (3.5-5.1); Sodium 137 mmol/L (136-145)
[2022-04-22 12:08] LABS: #Eosinphils 0.1 thou/uL (0.0-0.7); #Lymphocytes 0.9 thou/uL (1.20-3.40); #Monocytes 0.6 thou/uL (0.11-0.59); #Neutrophils 5.2 thou/uL (1.40-6.50); %Basophils 0.4 % (0.0-1.0); %Lymphocytes 13.1 % (21.0-51.0); %Monocytes 8.8 % (0.0-10.0); %Neutrophils 76.8 % (42.0-75.0); Hemoglobin 9.3 g/dL (12.0-16.0); Mean Corpuscular HGB CONC 31.5 g/dL (32.0-36.0); Mean Corpuscular Hemoglobin 31.4 pg (27.0-31.0); Mean Corpuscular Volume 99.8 fl (78.0-98.0); Mean Platelet Volume 6.3 fL (7.4-10.4); Platelet Count 257 thou/uL (130-400); RBC Distribution Width 14.4 % (11.5-14.5); Red Blood Cell (RBC) Count 2.95 mill/uL (4.20-5.40); White Blood Cell (WBC) Count 6.8 thou/uL (4.8-10.8)
[2022-04-22 12:19] LABS: INR-International Normal Ratio 1.2; PTT 41.8 sec (22.9-36.1); Prothrombin Time 15.1 sec (12.0-14.7)
[2022-04-22] MEDS ORDERED: Senokot S 8.6-50 MG TAB PO PRN (13:40)
[2022-04-22] MEDS ORDERED: Furosemide 40 MG/4 ML VIAL ONE (14:02)
[2022-04-22] MEDS: Furosemide 40 MG/4 ML VIAL SLOW IVP SCH (15:59)
[2022-04-22 16:06] VITALS: BMI 34.5
[2022-04-22] MEDS: Venlafaxine 75 MG TAB PO SCH (20:04)
[2022-04-22] MEDS: Trospium 20 MG TAB PO SCH (20:04)
[2022-04-22] MEDS: Melatonin 3 MG TAB PO SCH (20:04)
[2022-04-22] MEDS: Gabapentin 100 MG CAP PO SCH (20:04)
[2022-04-23] MEDS: Furosemide 40 MG/4 ML VIAL SLOW IVP SCH ×2 (05:40→15:38)
[2022-04-23] MEDS: Venlafaxine 75 MG TAB PO SCH ×2 (09:53→20:50)
[2022-04-23] MEDS: Trospium 20 MG TAB PO SCH ×2 (09:54→20:50)
[2022-04-23] MEDS ORDERED: Furosemide 20 MG/2 ML VIAL SLOW IVP SCH (10:45)
[2022-04-23 10:58] LABS: Actual Bicarbonate (HCO3a) 32.9 mEq/L (22-28); Base Excess (BEa) 7.9 mEq/L (-2.0 to +3.0); CO2 Tension 48.8 mmHg (35.0-45.0); Calcium, Ionized (arterial) 1.16 mmol/L (1.12-1.30); Carboxyhemoglobin (COHb) 1.1 gm% (0.0-3.0); O2 Tension (PaO2), arterial 77.8 mmHg (> 60.0); Potassium - ABG Lab 3.97 mmol/L (3.70-5.30); pH, Arterial 7.45 (7.35-7.45)
[2022-04-23] MEDS ORDERED: cefTRIAXone\\ROCEPHIN 1 GM in Sodium Chloride 0.9% 100 ML IVPB SCH (11:00)
[2022-04-23 11:01] LABS: Puncture Site RRA
[2022-04-23 12:26] LABS: #Eosinphils 0.1 thou/uL (0.0-0.7); #Lymphocytes 1.1 thou/uL (1.20-3.40); #Monocytes 0.5 thou/uL (0.11-0.59); #Neutrophils 4.1 thou/uL (1.40-6.50); %Basophils 0.4 % (0.0-1.0); %Eosinophils 1.4 % (0.0-10.0); %Lymphocytes 18.3 % (21.0-51.0); %Monocytes 9.3 % (0.0-10.0); %Neutrophils 70.7 % (42.0-75.0); Hemoglobin 8.6 g/dL (12.0-16.0); Mean Corpuscular HGB CONC 30.9 g/dL (32.0-36.0); Mean Corpuscular Hemoglobin 30.6 pg (27.0-31.0); Mean Corpuscular Volume 98.9 fl (78.0-98.0); Mean Platelet Volume 6.6 fL (7.4-10.4); Platelet Count 252 thou/uL (130-400); RBC Distribution Width 14.9 % (11.5-14.5); Red Blood Cell (RBC) Count 2.81 mill/uL (4.20-5.40); White Blood Cell (WBC) Count 5.8 thou/uL (4.8-10.8)
[2022-04-23 13:03] LABS: ALT (SGPT) 25 U/L (8-55); AST (SGOT) 61 U/L (5-34); Alkaline Phosphatase 188 U/L (40-110); Anion Gap 10 mmol/L (10-20); BUN (Urea Nitrogen) 16 mg/dL (9.8-20.1); Bilirubin, Total 1.7 mg/dL (0.2-1.2); Calc. Creatinine Clearance 79 mL/min (70-130); Calcium 8.9 mg/dL (7.8-10.44); Carbon Dioxide 33 mmol/L (23-31); Chloride 99 mmol/L (98-107); Estimated GFR 76; Globulin 3.6 g/dL (2.4-3.5); Glucose 87 mg/dL (83-110); Magnesium 1.7 mg/dL (1.6-2.6); Phosphorus 3.7 mg/dL (2.3-4.7); Protein, Total 6.6 g/dL (5.8-8.1); Sodium 138 mmol/L (136-145)
[2022-04-23] MEDS ORDERED: Metolazone 5 MG TAB PO SCH (13:45)
[2022-04-23] MEDS ORDERED: Iopamidol 370 76% 50 ML VIAL FS ONE (14:18)
[2022-04-23] MEDS: Gabapentin 100 MG CAP PO SCH (20:50)
[2022-04-23] MEDS: Melatonin 3 MG TAB PO SCH (20:50)
[2022-04-23] MEDS: Doxycycline 100 MG in Sodium Chloride 0.9% 100 ML IVPB SCH (20:53)
[2022-04-23] MEDS ORDERED: Doxycycline 100 MG in Syringe 0 ML IVPB SCH (21:00)
[2022-04-24] MEDS: Furosemide 40 MG/4 ML VIAL SLOW IVP SCH ×2 (05:53→16:25)
[2022-04-24 08:03] LABS: #Eosinphils 0.1 thou/uL (0.0-0.7); #Lymphocytes 0.8 thou/uL (1.20-3.40); #Monocytes 0.6 thou/uL (0.11-0.59); #Neutrophils 4.9 thou/uL (1.40-6.50); %Basophils 0.6 % (0.0-1.0); %Eosinophils 1.4 % (0.0-10.0); %Lymphocytes 12.3 % (21.0-51.0); %Monocytes 9.6 % (0.0-10.0); %Neutrophils 76.1 % (42.0-75.0); Hemoglobin 8.8 g/dL (12.0-16.0); Mean Corpuscular HGB CONC 31.4 g/dL (32.0-36.0); Mean Corpuscular Hemoglobin 31.3 pg (27.0-31.0); Mean Corpuscular Volume 99.7 fl (78.0-98.0); Mean Platelet Volume 6.6 fL (7.4-10.4); Platelet Count 251 thou/uL (130-400); RBC Distribution Width 14.9 % (11.5-14.5); Red Blood Cell (RBC) Count 2.81 mill/uL (4.20-5.40); White Blood Cell (WBC) Count 6.5 thou/uL (4.8-10.8)
[2022-04-24 08:23] LABS: Phosphorus 4.2 mg/dL (2.3-4.7)
[2022-04-24 08:27] LABS: ALT (SGPT) 26 U/L (8-55); AST (SGOT) 56 U/L (5-34); Alkaline Phosphatase 192 U/L (40-110); Anion Gap 11 mmol/L (10-20); BUN (Urea Nitrogen) 14 mg/dL (9.8-20.1); Bilirubin, Total 1.5 mg/dL (0.2-1.2); Calc. Creatinine Clearance 79 mL/min (70-130); Calcium 9.3 mg/dL (7.8-10.44); Carbon Dioxide 34 mmol/L (23-31); Chloride 96 mmol/L (98-107); Estimated GFR 76; Globulin 3.7 g/dL (2.4-3.5); Glucose 109 mg/dL (83-110); Magnesium 1.7 mg/dL (1.6-2.6); Potassium 3.8 mmol/L (3.5-5.1); Protein, Total 6.7 g/dL (5.8-8.1); Sodium 137 mmol/L (136-145)
[2022-04-24] MEDS: Doxycycline 100 MG in Sodium Chloride 0.9% 100 ML IVPB SCH ×2 (08:46→22:25)
[2022-04-24] MEDS: Venlafaxine 75 MG TAB PO SCH ×2 (08:46→22:25)
[2022-04-24] MEDS: Trospium 20 MG TAB PO SCH ×2 (08:46→22:25)
[2022-04-24] MEDS ORDERED: Simethicone Chewable 80 MG TAB PO PRN (16:25)
[2022-04-24] MEDS ORDERED: Metolazone 5 MG TAB PO SCH (16:30)
[2022-04-24] MEDS ORDERED: Potassium Chloride 10 MEQ in Premix Bag 1 BAG IVPB SCH (16:30)
[2022-04-24] MEDS ORDERED: Furosemide 40 MG/4 ML VIAL SLOW IVP SCH (18:00)
[2022-04-24] MEDS: Gabapentin 100 MG CAP PO SCH (22:24)
[2022-04-24] MEDS: Melatonin 3 MG TAB PO SCH (22:24)
[2022-04-25 05:40] LABS: #Eosinphils 0.1 thou/uL (0.0-0.7); #Monocytes 0.9 thou/uL (0.11-0.59); #Neutrophils 4.6 thou/uL (1.40-6.50); %Basophils 0.4 % (0.0-1.0); %Lymphocytes 14.5 % (21.0-51.0); %Monocytes 13.2 % (0.0-10.0); %Neutrophils 70.9 % (42.0-75.0); Hemoglobin 8.4 g/dL (12.0-16.0); Mean Corpuscular HGB CONC 30.5 g/dL (32.0-36.0); Mean Corpuscular Hemoglobin 29.9 pg (27.0-31.0); Mean Corpuscular Volume 98.1 fl (78.0-98.0); Mean Platelet Volume 6.7 fL (7.4-10.4); Platelet Count 224 thou/uL (130-400); RBC Distribution Width 14.8 % (11.5-14.5); Red Blood Cell (RBC) Count 2.81 mill/uL (4.20-5.40); White Blood Cell (WBC) Count 6.5 thou/uL (4.8-10.8)
[2022-04-25 05:57] LABS: ALT (SGPT) 21 U/L (8-55); AST (SGOT) 45 U/L (5-34); Albumin 2.9 g/dL (3.4-4.8); Alkaline Phosphatase 183 U/L (40-110); Anion Gap 12 mmol/L (10-20); BUN (Urea Nitrogen) 16 mg/dL (9.8-20.1); Bilirubin, Total 1.6 mg/dL (0.2-1.2); Calc. Creatinine Clearance 78 mL/min (70-130); Calcium 9.5 mg/dL (7.8-10.44); Carbon Dioxide 33 mmol/L (23-31); Chloride 94 mmol/L (98-107); Estimated GFR 75; Globulin 3.6 g/dL (2.4-3.5); Glucose 102 mg/dL (83-110); Potassium 3.5 mmol/L (3.5-5.1); Protein, Total 6.5 g/dL (5.8-8.1); Sodium 135 mmol/L (136-145)
[2022-04-25] MEDS: Furosemide 40 MG/4 ML VIAL SLOW IVP SCH ×2 (06:12→15:25)
[2022-04-25] MEDS: Doxycycline 100 MG in Sodium Chloride 0.9% 100 ML IVPB SCH ×2 (08:51→21:51)
[2022-04-25] MEDS: Trospium 20 MG TAB PO SCH ×2 (08:53→21:51)
[2022-04-25] MEDS: Potassium Chloride 10 MEQ TAB PO SCH (08:54)
[2022-04-25] MEDS: Metolazone 5 MG TAB PO SCH (08:55)
[2022-04-25] MEDS: Venlafaxine 75 MG TAB PO SCH ×2 (08:56→21:51)
[2022-04-25] MEDS ORDERED: Potassium Chloride 20 MEQ TAB PO SCH (16:00)
[2022-04-25] MEDS ORDERED: Ondansetron PF 4 MG/2 ML Vial IVP PRN (21:09)
[2022-04-25] MEDS ORDERED: Ondansetron ODT 4 MG TAB PO PRN (21:09)
[2022-04-25] MEDS: Benzonatate 100 MG CAP PO SCH (21:49)
[2022-04-25] MEDS: Gabapentin 100 MG CAP PO SCH (21:50)
[2022-04-25] MEDS: Melatonin 3 MG TAB PO SCH (21:51)
[2022-04-26 05:17] LABS: #Eosinphils 0.2 thou/uL (0.0-0.7); #Lymphocytes 0.9 thou/uL (1.20-3.40); #Monocytes 0.8 thou/uL (0.11-0.59); #Neutrophils 5.4 thou/uL (1.40-6.50); %Basophils 0.5 % (0.0-1.0); %Eosinophils 2.1 % (0.0-10.0); %Lymphocytes 12.3 % (21.0-51.0); %Monocytes 10.6 % (0.0-10.0); %Neutrophils 74.4 % (42.0-75.0); Mean Corpuscular HGB CONC 31.5 g/dL (32.0-36.0); Mean Corpuscular Volume 98.5 fl (78.0-98.0); Mean Platelet Volume 6.5 fL (7.4-10.4); Platelet Count 215 thou/uL (130-400); RBC Distribution Width 14.9 % (11.5-14.5); White Blood Cell (WBC) Count 7.3 thou/uL (4.8-10.8)
[2022-04-26 05:22] LABS: Anion Gap 12 mmol/L (10-20); BUN (Urea Nitrogen) 17 mg/dL (9.8-20.1); Calc. Creatinine Clearance 84 mL/min (70-130); Calcium 9.7 mg/dL (7.8-10.44); Carbon Dioxide 35 mmol/L (23-31); Chloride 90 mmol/L (98-107); Estimated GFR 83; Glucose 97 mg/dL (83-110); Magnesium 1.3 mg/dL (1.6-2.6); Potassium 3.6 mmol/L (3.5-5.1); Sodium 133 mmol/L (136-145)
[2022-04-26] MEDS: Furosemide 40 MG/4 ML VIAL SLOW IVP SCH ×2 (05:40→15:26)
[2022-04-26] MEDS: Metolazone 5 MG TAB PO SCH (08:32)
[2022-04-26] MEDS: Trospium 20 MG TAB PO SCH ×2 (08:32→22:07)
[2022-04-26] MEDS: Benzonatate 100 MG CAP PO SCH ×3 (08:33→22:05)
[2022-04-26] MEDS: Potassium Chloride 10 MEQ TAB PO SCH (08:47)
[2022-04-26] MEDS: Venlafaxine 75 MG TAB PO SCH ×2 (08:47→22:07)
[2022-04-26] MEDS ORDERED: Magnesium 2 GM/50 ML(in water) 2 GM in Premix Bag 1 BAG IVPB SCH (09:45)
[2022-04-26] MEDS: Doxycycline 100 MG in Sodium Chloride 0.9% 100 ML IVPB SCH ×2 (09:45→22:07)
[2022-04-26] MEDS: Simethicone Chewable 80 MG TAB PO SCH ×2 (18:04→22:06)
[2022-04-26] MEDS: Gabapentin 100 MG CAP PO SCH (22:05)
[2022-04-26] MEDS: Melatonin 3 MG TAB PO SCH (22:07)
[2022-04-27] MEDS: Furosemide 40 MG/4 ML VIAL SLOW IVP SCH ×2 (05:33→14:50)
[2022-04-27] MEDS: Simethicone Chewable 80 MG TAB PO SCH ×4 (08:18→21:28)
[2022-04-27] MEDS: Venlafaxine 75 MG TAB PO SCH ×2 (08:19→21:29)
[2022-04-27] MEDS: Metolazone 5 MG TAB PO SCH (08:19)
[2022-04-27] MEDS: Potassium Chloride 10 MEQ TAB PO SCH (08:19)
[2022-04-27] MEDS: Doxycycline 100 MG in Sodium Chloride 0.9% 100 ML IVPB SCH ×2 (08:20→21:27)
[2022-04-27] MEDS: Benzonatate 100 MG CAP PO SCH ×3 (08:20→21:27)
[2022-04-27] MEDS: Trospium 20 MG TAB PO SCH ×2 (08:22→21:29)
[2022-04-27] MEDS ORDERED: Polyethylene Glycol 3350 17 GM Packet PO SCH (14:45)
[2022-04-27] MEDS: Melatonin 3 MG TAB PO SCH (21:28)
[2022-04-27] MEDS: Gabapentin 100 MG CAP PO SCH (21:28)
[2022-04-28 05:05] LABS: #Eosinphils 0.1 thou/uL (0.0-0.7); #Lymphocytes 0.9 thou/uL (1.20-3.40); #Monocytes 0.7 thou/uL (0.11-0.59); #Neutrophils 5.6 thou/uL (1.40-6.50); %Eosinophils 1.7 % (0.0-10.0); %Lymphocytes 12.7 % (21.0-51.0); %Monocytes 9.5 % (0.0-10.0); %Neutrophils 76.1 % (42.0-75.0); Hemoglobin 8.5 g/dL (12.0-16.0); Mean Corpuscular HGB CONC 31.2 g/dL (32.0-36.0); Mean Corpuscular Hemoglobin 30.4 pg (27.0-31.0); Mean Corpuscular Volume 97.6 fl (78.0-98.0); Mean Platelet Volume 6.7 fL (7.4-10.4); Platelet Count 210 thou/uL (130-400); RBC Distribution Width 15.4 % (11.5-14.5); Red Blood Cell (RBC) Count 2.77 mill/uL (4.20-5.40); White Blood Cell (WBC) Count 7.4 thou/uL (4.8-10.8)
[2022-04-28 05:29] LABS: Anion Gap 11 mmol/L (10-20); BUN (Urea Nitrogen) 22 mg/dL (9.8-20.1); Calc. Creatinine Clearance 86 mL/min (70-130); Calcium 9.7 mg/dL (7.8-10.44); Carbon Dioxide 33 mmol/L (23-31); Chloride 87 mmol/L (98-107); Estimated GFR 84; Glucose 89 mg/dL (83-110); Potassium 3.3 mmol/L (3.5-5.1); Sodium 128 mmol/L (136-145)
[2022-04-28] MEDS: Furosemide 40 MG/4 ML VIAL SLOW IVP SCH ×2 (06:22→14:31)
[2022-04-28 06:48] LABS: Magnesium 1.3 mg/dL (1.6-2.6)
[2022-04-28] MEDS ORDERED: Potassium Chloride 20 MEQ in Premix Bag 1 BAG IVPB SCH (08:00)
[2022-04-28] MEDS: Potassium Chloride 10 MEQ TAB PO SCH (08:57)
[2022-04-28] MEDS: Benzonatate 100 MG CAP PO SCH ×3 (08:57→21:18)
[2022-04-28] MEDS: Metolazone 5 MG TAB PO SCH (08:57)
[2022-04-28] MEDS: Doxycycline 100 MG in Sodium Chloride 0.9% 100 ML IVPB SCH ×2 (08:58→21:19)
[2022-04-28] MEDS: Simethicone Chewable 80 MG TAB PO SCH ×4 (08:58→21:19)
[2022-04-28] MEDS: Polyethylene Glycol 3350 17 GM Packet PO SCH (08:58)
[2022-04-28] MEDS: Venlafaxine 75 MG TAB PO SCH ×2 (09:00→21:19)
[2022-04-28] MEDS: Trospium 20 MG TAB PO SCH ×2 (09:00→21:19)
[2022-04-28] MEDS: Gabapentin 100 MG CAP PO SCH (21:17)
[2022-04-28] MEDS: Melatonin 3 MG TAB PO SCH (21:17)
[2022-04-29] MEDS: Furosemide 40 MG/4 ML VIAL SLOW IVP SCH ×2 (05:20→14:16)
[2022-04-29 05:47] LABS: Anion Gap 11 mmol/L (10-20); BUN (Urea Nitrogen) 22 mg/dL (9.8-20.1); Calc. Creatinine Clearance 75 mL/min (70-130); Calcium 9.4 mg/dL (7.8-10.44); Carbon Dioxide 36 mmol/L (23-31); Chloride 86 mmol/L (98-107); Estimated GFR 72; Glucose 95 mg/dL (83-110); Magnesium 1.5 mg/dL (1.6-2.6); Potassium 3.5 mmol/L (3.5-5.1); Sodium 129 mmol/L (136-145)
[2022-04-29] MEDS: Doxycycline 100 MG in Sodium Chloride 0.9% 100 ML IVPB SCH ×2 (08:52→21:24)
[2022-04-29] MEDS: Polyethylene Glycol 3350 17 GM Packet PO SCH (08:53)
[2022-04-29] MEDS: Simethicone Chewable 80 MG TAB PO SCH ×4 (08:53→21:24)
[2022-04-29] MEDS: Benzonatate 100 MG CAP PO SCH ×3 (08:54→21:23)
[2022-04-29] MEDS: Metolazone 5 MG TAB PO SCH (08:54)
[2022-04-29] MEDS: Venlafaxine 75 MG TAB PO SCH ×2 (08:54→21:23)
[2022-04-29] MEDS: Trospium 20 MG TAB PO SCH ×2 (08:54→21:23)
[2022-04-29] MEDS: Potassium Chloride 10 MEQ TAB PO SCH (08:54)
[2022-04-29] MEDS ORDERED: Magnesium 2 GM/50 ML(in water) 2 GM in Premix Bag 1 BAG IVPB SCH (11:30)
[2022-04-29] MEDS: Melatonin 3 MG TAB PO SCH (21:24)
[2022-04-29] MEDS: Gabapentin 100 MG CAP PO SCH (21:24)
[2022-04-30] MEDS: Furosemide 40 MG/4 ML VIAL SLOW IVP SCH ×2 (05:32→14:00)
[2022-04-30 05:44] LABS: Anion Gap 14 mmol/L (10-20); BUN (Urea Nitrogen) 26 mg/dL (9.8-20.1); Calc. Creatinine Clearance 80 mL/min (70-130); Calcium 9.2 mg/dL (7.8-10.44); Carbon Dioxide 31 mmol/L (23-31); Chloride 87 mmol/L (98-107); Estimated GFR 77; Glucose 94 mg/dL (83-110); Magnesium 1.7 mg/dL (1.6-2.6); Potassium 3.6 mmol/L (3.5-5.1); Sodium 128 mmol/L (136-145)
[2022-04-30] MEDS: Simethicone Chewable 80 MG TAB PO SCH ×4 (08:55→21:17)
[2022-04-30] MEDS: Trospium 20 MG TAB PO SCH ×2 (08:55→21:21)
[2022-04-30] MEDS: Venlafaxine 75 MG TAB PO SCH ×2 (08:55→21:21)
[2022-04-30] MEDS: Potassium Chloride 10 MEQ TAB PO SCH (08:56)
[2022-04-30] MEDS: Polyethylene Glycol 3350 17 GM Packet PO SCH (08:56)
[2022-04-30] MEDS: Benzonatate 100 MG CAP PO SCH ×3 (08:56→21:16)
[2022-04-30] MEDS: Doxycycline 100 MG in Sodium Chloride 0.9% 100 ML IVPB SCH (08:56)
[2022-04-30] MEDS: Metolazone 5 MG TAB PO SCH (08:56)
[2022-04-30] MEDS: Melatonin 3 MG TAB PO SCH (21:16)
[2022-04-30] MEDS: Gabapentin 100 MG CAP PO SCH (21:16)
[2022-05-01] MEDS: Furosemide 40 MG/4 ML VIAL SLOW IVP SCH (05:05)
[2022-05-01 06:41] LABS: Anion Gap 11 mmol/L (10-20); BUN (Urea Nitrogen) 29 mg/dL (9.8-20.1); Calc. Creatinine Clearance 73 mL/min (70-130); Calcium 9.4 mg/dL (7.8-10.44); Carbon Dioxide 33 mmol/L (23-31); Chloride 85 mmol/L (98-107); Estimated GFR 70; Glucose 96 mg/dL (83-110); Magnesium 1.5 mg/dL (1.6-2.6); Potassium 3.6 mmol/L (3.5-5.1); Sodium 125 mmol/L (136-145)
[2022-05-01] MEDS ORDERED: Magnesium 2 GM/50 ML(in water) 2 GM in Premix Bag 1 BAG IVPB SCH (07:45)
[2022-05-01] MEDS: Potassium Chloride 10 MEQ TAB PO SCH (09:19)
[2022-05-01] MEDS: Polyethylene Glycol 3350 17 GM Packet PO SCH (09:20)
[2022-05-01] MEDS: Benzonatate 100 MG CAP PO SCH ×2 (09:20→13:56)
[2022-05-01] MEDS: Simethicone Chewable 80 MG TAB PO SCH ×3 (09:21→19:01)
[2022-05-01] MEDS: Trospium 20 MG TAB PO SCH (09:22)
[2022-05-01] MEDS: Venlafaxine 75 MG TAB PO SCH (09:22)
[2022-05-01] MEDS: Metolazone 5 MG TAB PO SCH (09:24)
[2022-05-01 10:03] LABS: Hemoglobin 9.4 g/dL (12.0-16.0)
[2022-05-01] MEDS ORDERED: Bumetanide 1 MG/4 ML VIAL IVP SCH (14:00)
[2022-05-01 15:13] LABS: Sodium 125 mmol/L (136-145)
[2022-05-02 02:43] VITALS: BP 104/50; TEMP 98
== END 2022-05-01 18:59 | disposition home health service (06) | DRG 291 ==
LOC: ERS 10:49 → 2SW 13:40 → OBSVTOIN 14:24
PROVIDERS: ADMIT Internal Medicine; ATTEND Internal Medicine
DX: I11.0 Hypertensive heart disease with heart failure (principal); I50.33 Acute on chronic diastolic (congestive) heart failure; J96.01 Acute respiratory failure with hypoxia; J96.02 Acute respiratory failure with hypercapnia; L03.116 Cellulitis of left lower limb; R18.8 Other ascites; I48.20 Chronic atrial fibrillation, unspecified; E87.1 Hypo-osmolality and hyponatremia; Z66 Do not resuscitate; Z20.822 Contact with and (suspected) exposure to COVID-19; I49.5 Sick sinus syndrome; I34.0 Nonrheumatic mitral (valve) insufficiency; K74.69 Other cirrhosis of liver; F41.9 Anxiety disorder, unspecified; F32.A Depression, unspecified; E87.6 Hypokalemia; E83.42 Hypomagnesemia; Z82.49 Family history of ischemic heart disease and other diseases of the circulatory system; Z79.899 Other long term (current) drug therapy; Z95.0 Presence of cardiac pacemaker; Z95.818 Presence of other cardiac implants and grafts; Z91.040 Latex allergy status; Z91.09 Other allergy status, other than to drugs and biological substances; Z80.0 Family history of malignant neoplasm of digestive organs; Z95.2 Presence of prosthetic heart valve; Z90.49 Acquired absence of other specified parts of digestive tract; Z90.710 Acquired absence of both cervix and uterus; Z90.721 Acquired absence of ovaries, unilateral; Z98.890 Other specified postprocedural states
CPT/HCPCS: 36415; 36600; 71045; 71275; 74018; 74176; 80048; 80053; 82805; 83690; 83735; 83880; 84100; 84145; 84443; 84484; 85014; 85018; 85025; 85610; 85730; 87811; 93005; 93306; 94640; 94760; 96374; G0378; J1940; J2370; J2704; J3475; J3480; J3490; J7620; Q9967; U0003; U0005